=== PATIENT | female | born 1995 | race Caucasian/White ===

== ENCOUNTER 2018-04-17 16:32 | Emergency (ER) | payer MEDICAID, SELFPAY ==
[2018-04-17 16:33] VITALS: BP 127/79; PULSE 73; RESP 14; TEMP 37.4; O2SAT 98; BMI 39.4
--- NOTE | 2018-04-17 16:43 | ED.VISSUMM ---
- ER Visit Summary Date of Service: 04/17/18 Chief Complaint: Concern for History of Present Illness: The patient is a 22 F presents to the emergency department concerned she is . 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 She had to be on Xarelto after pulmonary embolus. Patient is on been once before and had a miscarriage. She is concerned that if she is , she will need to be on anticoagulants. She did have 2 positive urine tests at home. She denies any abdominal pain. She denies any vaginal bleeding. She has had no chest pain. She has had mild nausea. Physical Examination: Vital signs reviewed General: Well-nourished, well-developed Head: Normocephalic, atraumatic Eyes: Pupils equal and reactive, extraocular muscles intact Neck, supple, no lymphadenopathy Heart: Regular rate and rhythm Respiratory: No distress, clear bilaterally Abdomen: Soft, nontender, nondistended, no peritoneal signs Back: Nontender Extremities: Nontender, no edema, no cords Skin: Normal color no rash Neuro: Alert and oriented, no focal or lateralizing deficits Test Results: [] Emergency Department Course and Treatment: The patient has no abdominal pain. She has had no chest pain or shortness of breath. She was just recently here for a confirmatory test and outpatient follow-up as she has had a clotting disorder. Quant was obtained and was positive at 170. The patient is obviously not far enough along for ultrasound at this time. She has had no pain. I do not suspect ectopic. The patient was counseled on results. I did activities counselor her that if her symptoms change, she has pain, she has any bleeding she should return immediately. I discussed the patient with Dr. Dinh for outpatient follow-up. She does state that until there is a confirmed viable , anticoagulants are held. The patient be seen in the office this week. She will be started on vitamins. Treatment Plan: [] Disposition: Discharge Impression: 1. 2. History of clotting disorder This note was generated with [employer] software. It may contain incorrect words, spelling, and punctuation that were not noted in review of the chart prior to signing ED Disposition - Plan for ED Patient: Chief Complaint: Instructions: ED Care Prescriptions: Vits [Prenatabs FA] 1 tab PO DAILY #90 tab Referrals: Samy Dinh [STAFF PHYSICIAN] -
[2018-04-17 17:09] LABS: Bacteria 0 SEEN /hpf (None Seen); Mucous, Urine 0 SEEN /hpf (<or=2+); Red Blood Cells-Urine 0 SEEN /hpf (0-5)
[2018-04-17 17:15] LABS: Color, Urine Yellow (Yellow); Glucose, Dipstick Normal (Normal); Ketone-Dipstick Negative (Negative); Leukocyte Esterase-Dipstick 25 /ul (Negative); Nitrite-Dipstick Negative (Negative); Occult Blood-Urine Negative /ul (Negative); Protein-Dipstick 15 mg/dl (Negative); Urine Bilirubin Dipstick Negative (Negative); Urine Clarity Clear (Clear); Urine Urobilinogen Normal (Normal)
[2018-04-17 17:26] LABS: Squamous Epithelial Cells - UA 0-5 SEEN /hpf (5-10); White Blood Cells 0-5 SEEN /hpf (0-5)
[2018-04-17 17:31] LABS: hCG Titer Quant., Serum 187 mIU/mL (<9 non-preg)
== END 2018-04-17 18:02 | disposition home or self-care (01) ==
PROVIDERS: Emergency Provider Emergency Medicine; Family Provider Family Medicine; PCP Family Medicine
DX: O99.111 Other diseases of the blood and blood-forming organs and certain disorders involving the immune mechanism complicating pregnancy, first trimester (principal); D68.2 Hereditary deficiency of other clotting factors; Z3A.00 Weeks of gestation of pregnancy not specified; Z79.82 Long term (current) use of aspirin
CPT/HCPCS: 81001; 84702; 99283; A4216

== ENCOUNTER 2018-05-29 23:37 | Emergency (ER) | payer MEDICAID, SELFPAY ==
[2018-05-29 23:38] VITALS: BP 139/86; PULSE 100; RESP 16; TEMP 37.3; O2SAT 100; BMI 40.5
[2018-05-30] MEDS: 0.9% Normal Saline 1,000 ML 1000 ML IV (00:11)
[2018-05-30] MEDS: Acetaminophen 500 MG Tablet 1000 MG PO (00:13)
[2018-05-30] MEDS: Ondansetron 4 MG/2 ML Vial IV (00:13)
[2018-05-30 00:17] LABS: Absolute Lymphocyte Count 2.33 X10^3/ul (0.83-4.51); Absolute Neutrophil Count 5.9 X10^3/uL (2.0-7.7); Basophil# 0.01 X10^3/uL; Basophil% 0.1 % (0-1); Eosinophil# 0.11 X10^3/uL; Eosinophils% 1.2 % (0-5); Hematocrit 36.6 % (37-47); Hemoglobin 12.2 g/dl (12.0-15.0); Lymphocyte # 2.33 X10^3/ul (4.0); Lymphocyte % 25.3 % (19-41); Mean Corp Hgb Conc 33.3 g/gl (32-36); Mean Corpuscular Hgb 29.7 pg (27.0-32.0); Mean Corpuscular Volume 89.1 fL (81-99); Mean Platelet Vol. 10.7 fl (6.2-12.0); Monocyte# 0.83 X10^3/uL; Neutrophil # 5.91 X10^3/uL (2.7-7.7); Neutrophil % 64.3 % (47-70); Platelet Count 258 K/mm3 (150-450); RBC Distribution Width CV 14.5 % (11.6-14.6); RBC Distribution Width SD 46.7 fl (35.1-43.9); Red Blood Count 4.11 M/mm3 (4.2-5.4); White Blood Count 9.2 K/mm3 (4.4-11.0)
[2018-05-30 00:18] LABS: POSITIVE COUNT NO; POSITIVE DIFFERENTIAL NO; POSITIVE MORPHOLOGY NO
--- NOTE | 2018-05-30 00:53 | ED.DCSUM_ITS ---
- ER Visit Summary Date of Service: 05/30/18 Chief Complaint: Abdominal pain History of Present Illness: The patient is a 22 F who [facility] and Dr. Anderson. She is a at 10 weeks by an ultrasound May 06. She reports that she has upper abdominal pain began 5:00 this evening is gradually gotten worse. Is a sharp pains 1010 at worst and 6 out of 10 currently. Is worsened by nothing including food. It is also relieved by nothing. She has been nausea and vomited 3 times. No blood or emesis. She reports that she has chronic diarrhea, but has not had anything today. Her last problem was 2 days ago. She has had no melena hematochezia. No dysuria frequency. No vaginal bleeding or discharge. No fever or chills. Physical Examination: Vitals: Stable. Afebrile. General: Well-nourished and well-developed. Head: Normocephalic atraumatic. Neck: Supple, no lymphadenopathy. No JVD. Nontender. Cardiovascular: Regular rate and rhythm. No murmurs. Respiratory: No respiratory distress. Clear to auscultation bilaterally. Abdominal: Soft, mild tenderness palpation the right upper quadrant/epigastric/ left upper quadrant, nondistended, normal bowel sounds. No guarding, rebound, or peritoneal signs. Back: Nontender. Extremities: Nontender, no edema. Skin: Normal color, no rash. Neurologic: Alert and oriented ?3. Cranial nerves II through XII are intact. Normal strength and sensation. Psych: Normal affect. Test Results: Bedside ultrasound shows good movement and heartbeat. CBC is more for hematocrit 36.6. Chem-7 is normal. LFTs are normal. Lipase is normal. UA is contaminated with greater than 100 epithelial cells. There is 1025 white blood cells, but no bacteria. Emergency Department Course and Treatment: Patient had an IV placed. She was given a liter bolus normal saline. She is given Tylenol p.o. and Zofran IV. She is resting comfortably. Treatment Plan: Patient will be discharged with Zofran for nausea. Instructed to follow with her primary care physician 1-2 days if not improving. Return to the emergency department for any worsening symptoms. Disposition: To home in improved and stable condition. Impression: 1. Abdominal pain, uncertain cause. 2. First trimester . This note was generated with [employer] dictation software. It may contain incorrect words, spelling, and punctuation that were not noted in review of the chart prior to signing ED Disposition - Plan for ED Patient: Chief Complaint: Instructions: ED Abdominal Pain Unkn Cause Prescriptions: Ondansetron [Zofran Odt] 4 mg PO Q8H PRN PRN #10 tablet PRN Reason: Nausea Referrals: Td Anderson MD [Primary Care Provider] - 1-2 Days if not improving
[2018-05-30 00:55] LABS: AST(SGOT) 37 U/L (15-37); Alanine Aminotransfer ALT/SGPT 22 U/L (13-56); Albumin, Serum 3.3 g/dL (3.2-5.0); Alkaline Phosphatase 46 U/L (45-117); Anion Gap 8 (5-15); BUN 8 mg/dL (7-18); BUN/Creat Ratio 12.5 RATIO (10-20); Bilirubin, Direct 0.08 mg/dL (0.00-0.30); Calcium,Total 8.6 mg/dL (8.5-10.1); Chloride 107 mmol/L (98-107); Creatinine, Serum 0.64 mg/dL (0.55-1.02); EST Glomerular Filtration Rate 125 mL/min (>60); Est Glom Filt Rate - Afr Amer 151 mL/min (>60); Estimated Creatinine Clearance 121.08 ml/min; Glucose 94 mg/dL (74-106); Lipase 97 U/L (73-393); Potassium 4.5 mmol/L (3.5-5.1); Protein, Total 7.3 g/dL (6.4-8.2); Sodium Level 138 mmol/L (136-145)
[2018-05-30 01:00] LABS: Bacteria 0 SEEN /hpf (None Seen)
[2018-05-30 01:04] LABS: Color, Urine Yellow (Yellow); Glucose, Dipstick Normal (Normal); Leukocyte Esterase-Dipstick 500 /ul (Negative); Nitrite-Dipstick Negative (Negative); Occult Blood-Urine 10 /ul (Negative); Protein-Dipstick 15 mg/dl (Negative); Specific Gravity, Urine 1.025 (1.002-1.030); Urine Bilirubin Dipstick Negative (Negative); Urine Clarity Sl. Cloudy (Clear); Urine Urobilinogen Normal (Normal)
[2018-05-30 01:17] LABS: Ketone-Dipstick 150 mg/dl (Negative)
[2018-05-30 01:18] LABS: Mucous, Urine 2+ /hpf (<or=2+); Red Blood Cells-Urine 0-5 SEEN /hpf (0-5); Squamous Epithelial Cells - UA > 100 SEEN /hpf (5-10); White Blood Cells 10-25 SEEN /hpf (0-5)
[2018-05-30 01:23] VITALS: BP 126/80; PULSE 78; RESP 16; O2SAT 98
== END 2018-05-30 01:29 | disposition home or self-care (01) ==
LOC: ED 05-30 00:02
PROVIDERS: Emergency Provider Emergency Medicine; Family Provider Family Medicine; PCP Family Medicine
DX: R10.9 Unspecified abdominal pain (principal); O26.891 Other specified pregnancy related conditions, first trimester; Z3A.10 10 weeks gestation of pregnancy; R19.7 Diarrhea, unspecified
CPT/HCPCS: 80048; 80076; 81001; 83690; 85025; 99284; J7030; J2405

== ENCOUNTER 2018-10-03 04:05 | Outpatient (CLI) | payer MEDICAID, SELFPAY ==
[2018-10-03 05:25] VITALS: BMI 43.0
--- NOTE | 2018-10-06 13:52 | OB.TRI.NOTE ---
History of Present Illness Reason For Visit: R/O LABOR Date of Service: 10/03/18 Final INES: 12/23/18 Gestational age: 28 Weeks and 6 Days Allergies amoxicillin Allergy (Verified 05/29/18 23:38) Unknown NST - FHR Rate Baby A Baseline: 135 Variability:: Moderate Accelerations:: 15 x 15 Decelerations:: Variable NST Reactive:: Yes Uterine Activity:: quiet Impression/Plan Reactive NST for threatened PTL
== END 2018-10-03 05:50 | disposition home or self-care (01) ==
LOC: WPOUT 04:43 → WP 04:44
PROVIDERS: Family Provider Family Medicine; PCP Family Medicine; Referring Provider Obstetrics & Gynecology; Visit Provider Obstetrics & Gynecology
DX: O60.02 Preterm labor without delivery, second trimester (principal); Z3A.28 28 weeks gestation of pregnancy
CPT/HCPCS: 59050; 99218; G0378

== ENCOUNTER 2018-12-16 09:05 | Inpatient (IN) | payer MEDICAID, SELFPAY ==
[2018-12-16 09:16] VITALS: BMI 45.6
[2018-12-16] MEDS: Lactated Ringers 1,000 ML 50 ML IV ×3 (10:00→17:45)
[2018-12-16 10:31] LABS: Hemoglobin 11.1 g/dl (12.0-15.0); Mean Corp Hgb Conc 31.7 g/gl (32-36); Mean Corpuscular Hgb 28.2 pg (27.0-32.0); Mean Corpuscular Volume 88.8 fL (81-99); Platelet Count 247 K/mm3 (150-450); RBC Distribution Width CV 14.5 % (11.6-14.6); RBC Distribution Width SD 47.1 fl (35.1-43.9); Red Blood Count 3.94 M/mm3 (4.2-5.4)
[2018-12-16 10:32] LABS: Scan Indicated on CBC? Y/N NO
[2018-12-16 10:41] LABS: International Normalized Ratio 0.9; Prothrombin Time (Protime)PT. 12.6 SECONDS (11.7-14.9)
[2018-12-16 10:42] LABS: Partial Thromboplast Time 27.3 Seconds (24.1-36.2)
[2018-12-16 10:45] LABS: AST(SGOT) 13 U/L (15-37); Alanine Aminotransfer ALT/SGPT 14 U/L (13-56); Creatinine, Serum 0.53 mg/dL (0.55-1.02); EST Glomerular Filtration Rate 154 mL/min (>60); Est Glom Filt Rate - Afr Amer 186 mL/min (>60)
[2018-12-16 11:44] LABS: Protein, Urine (Random) < 6.0 mg/dL (<11.9)
--- NOTE | 2018-12-16 12:54 | HP.PCM_ITS ---
- Problem List (1) Gestational hypertension Status: Acute (2) History of pulmonary embolism Status: Acute (3) Obesity affecting Status: Acute (4) History of depression Status: Acute (5) Positive GBS test Status: Acute (6) Bipolar 2 disorder Status: Acute History Date of Admission: 12/16/18 Final INES: 12/23/18 Final INES Source: US <20 weeks Gestational age: 39 Weeks and 0 Days History of this : This is a 23 year-old, G [2], P [0010], at 39 weeks gestational age. Presented to office today with elevated BP. Sent to L&D for IOL for Gestational HTN and history of pulmonary embolism. Allergies amoxicillin Allergy (Verified 12/16/18 09:43) Rash Home Medications: Home Medications Heparin Sodium,Porcine [Heparin Sodium] 5,000 unit IJ 12/16/18 Vits [Prenatabs FA] 1 tablet PO DAILY 12/16/18 Smoking Status: Never smoker Alcohol: None Number of Fetus(es): 1 Heart Tracin, moderate variability, accels, no decels, Category 1 Uterine irritability History Past Pregnancies: Past Pregnancies Delivery Date Name GA/Weeks Outcome Route Weight Gender Labor Length Anesthesia Delivery Location Provider FOB Labs: GC/CT positive beginning of , KAVITA negative on 11/29/18 GBS positive Urine tox screen negative RPR negative Rubella Immune HBsAG negative HIV negative A positive Cystic Fibrosis negative Expected Infant Delivery Method: Spontaneous Vaginal Review of Systems Constitutional: Denies: Chills, Fever, Weight Change Eyes: Denies: Blurred vision HEENT: Denies: Head Aches, Sinus Congestion, Sinus Drainage Cardiovascular: Denies: Chest Pain, Palpitations Respiratory: Denies: Cough, Shortness of breath at rest, Sputum production Gastrointestinal: Denies: Abdominal Pain, Nausea, Vomiting Genitourinary: Denies: Dysuria Skin: Denies: Rash, Wounds Neurological: Denies: Numbness, Tingling, Focal weakness Psychiatric: Denies: Anxiety, Depression, Homicidal Ideations, Suicidal Ideations Hematologic/ Lymphatic: Denies: Easy Bruising, Easy Bleeding Physical Exam General: Alert, Oriented x3, No apparent distress HEENT: Atraumatic, Normocephalic Cardiovascular: Regular rate, Regular Rhythm, No murmurs Lungs: Clear to auscultation, Normal air movement, No rhonchi, No wheeze Abdomen: Bowel Sounds Present, Soft, Non Tender, Gravid Extremities:: Other - +1 non pitting BLE edema Neurological: Deep Tendon Reflexes 2+/4 and Symmetrical. Negative for: Clonus FORMING PRESS OPERATOR: Normal external genitalia. Negative for: Vulvar lesions Estimated gestational size: Appropriate for gestational size Presentation: Cephalic Cervix Dilation (cm): 1 Station: -1 Effacement (%): 70 Assessment/Plan All Active Problems Gestational hypertension (Acute) History of pulmonary embolism (Acute) Obesity affecting (Acute) History of depression (Acute) Positive GBS test (Acute) Bipolar 2 disorder (Acute) This is a 23 year-old, G [2], P [0010], at 39 weeks gestational age. A: Medically indicated induction of labor for Gestational Hypertension P: 1) Admit to L&D, routine orders 2) Reviewed plan, would like unmedicated if possible. Reviewed with patient if BP is elevated in severe range would recommend epidural. 3) Labs normal at this time. No signs of Pre-e, gestational HTN 4) Continuous monitoring. 5) Castaneda catheter and PO cytotec for cervical ripening. 6) Will start Pitocin after cervical ripening. 7) [facility] physician.
[2018-12-16] MEDS: 0.9% Normal Saline 100 ML IV.SOLN. INTRA-UTER (13:30)
[2018-12-16] MEDS: miSOPROStol 25 MCG TABLET PO (13:45)
[2018-12-16] MEDS: Acetaminophen 325 MG Tablet PO ×2 (16:12→20:48)
[2018-12-16] MEDS: Cefazolin 2 GM in 0.9% Normal Saline 100 ML IV (18:02)
[2018-12-16] MEDS: Oxytocin 30 units/NS 500 ml 30 UNITS/500 ML IV.SOLN IV (19:10)
[2018-12-17] VITALS (12 sets, daily range): BP systolic 114–132; BP diastolic 52–80; PULSE 110–135; RESP 16–18; TEMP 36.6–37.4; O2SAT 94–100
[2018-12-17] MEDS: Lactated Ringers 1,000 ML 50 ML IV ×3 (01:12→10:54)
[2018-12-17] MEDS: Cefazolin 1 GM/50 ML BAG IV ×2 (01:59→10:55)
--- NOTE | 2018-12-17 05:23 | PCM.PN.OB ---
Patient Problems: Active and Suspected Problems Gestational hypertension (Acute) History of pulmonary embolism (Acute) Obesity affecting (Acute) History of depression (Acute) Positive GBS test (Acute) Bipolar 2 disorder (Acute) Subjective: Coping well, laying well in bed. Family at bedside. Objective: FHT 120, moderate variability, accels, no decels, Category 1 TOCO: every 2-4 minutes, Pitocin at 16mu's. Cervix 5cm/70%/-1. AROM for small amount of clear fluid - Physical Exam Weight: 266 lb 1.567 oz Body Mass Index (BMI) 45.6 Laboratory Tests Past 24 Hrs 12/16/18 12/16/18 12/16/18 10:00 10:00 10:00 WBC 9.0 RBC 3.94 L Hgb 11.1 L Hct 35.0 L MCV 88.8 MCH 28.2 MCHC 31.7 L RDW 14.5 RDW Differential 47.1 H Plt Count 247 MPV 11.0 PT 12.6 INR 0.9 APTT 27.3 Creatinine Est GFR (MDRD) Af Amer Est GFR (MDRD) Non-Af Uric Acid AST ALT U Random Total Protein Urine Creatinine Protein/Creatinin Ratio Blood Type A POSITIVE Antibody Screen NEGATIVE 12/16/18 12/16/18 10:00 11:15 WBC RBC Hgb Hct MCV MCH MCHC RDW RDW Differential Plt Count MPV PT INR APTT Creatinine 0.53 L Est GFR (MDRD) Af Amer 186 Est GFR (MDRD) Non-Af 154 Uric Acid 4.0 AST 13 L ALT 14 U Random Total Protein < 6.0 Urine Creatinine 19.80 Protein/Creatinin Ratio TNP Blood Type Antibody Screen Medical Necessity - Tobacco Use Smoking Status: Never smoker Assessment/Plan All Active Problems Gestational hypertension (Acute) History of pulmonary embolism (Acute) Obesity affecting (Acute) History of depression (Acute) Positive GBS test (Acute) Bipolar 2 disorder (Acute) A:Active labor, progressing Category 1 FHT P: 1) Continue with active management 2) Positional changes. Epidural for pain management when desires
[2018-12-17] MEDS: Nalbuphine 10 MG/ML Ampul IV (08:45)
[2018-12-17] MEDS: fentaNYL-bupivacaine (epidural) 100 ML BAG EPIDURAL ×2 (10:15→15:18)
[2018-12-17] MEDS: Acetaminophen 325 MG Tablet PO (15:19)
[2018-12-17] MEDS: Ondansetron 4 MG/2 ML Vial IV ×2 (15:20→23:18)
[2018-12-17] MEDS: Sodium Citrate/Citric Acid 30 ML UDC PO (17:37)
[2018-12-17] MEDS: Cefazolin 2 GM in 0.9% Normal Saline 100 ML IV (17:55)
[2018-12-17] MEDS: Oxytocin 30 units/NS 500 ml 30 UNITS/500 ML IV.SOLN 167 UNITS IV (18:12)
[2018-12-17] MEDS: Ketorolac 30 MG/ML Syringe IV (18:20)
--- NOTE | 2018-12-17 19:13 | OP.PCM_ITS ---
Report of Operation Date of Procedure: 12/17/18 Pre-Operative Diagnosis: (1) Gestational hypertension (2) Failure to dilate Post-Operative Diagnosis: Same Surgery/Procedure Performed:: Low transverse section Description of Surgical Findings:: Normal uterus & adnexa protective services officer: Jose Hernandez Type of Anesthesia:: Epidural Drains: Castaneda Fluids Replaced: 1500ml Delivery Classification: KAMLESH Final INES: 12/23/18 Gestational age: 39 Weeks and 1 Days Indications: Patient was induced for gestational hypertension. She made slow change to 6cm and didn't further dilate beyond that despite adequate contractions for over 5 hours. Indications for : Sec. Arrest of Dilitation Description of Procedure: Patient taken to OR where epidural anesthesia was dosed. She was prepped and draped in normal sterile fashion in a dorsal lithotomy position with a leftward tilt. After ensuring adequacy of anesthesia the Pfannensteil skin incision was made and carried through to the underlying fascia with a bovie. The fascia was incised in the midline and carried laterally with the Negron scissors. The rectus muscles were in the midline and the peritoneum was entered bluntly. The bladder flap was dissected down carefully with the Metzenbaum scissors and blunt dissection. Bladder blade inserted. The uterus was incised in a transverse fashion and then incision extended with cephalocaudad traction. The fetus was vertex and the head was brought to the incision in the flexed position. With good fundal pressure the head easily delivered. Gentle traction placed on head to allow delivery of anterior & posterior shoulders. No excess traction placed on head. The body delivered easily. The 3VC cord was clamped and cut after 1 minute delay and the infant handed off to the waiting RN. The placenta was delivered w/ gentle traction and fundal massage and the uterus was exteriorized and cleared of all clots and debris. The uterine incision was closed with 1 vicryl suture in a running locked fashion. The bovie was used to further obtain hemostasis of the uterine incision. A second imbricating layer of monocryl was placed. 2 additional figure of 8 sutures were placed to further obtain hemostasis of the uterine incision. The uterus was returned to the peritoneal cavity. The pelvis was irrigated & then cleared of all clots and debris. The uterine incision was reexamined and found to be hemostatic. Some linette was placed over the uterine incision due to the denuded areas. The parietal peritoneum was reapproximated with running 3-0 vicryl suture. The fascia was closed with looped PDS suture in a running standard fashion. The subcutaneous tissue was examined & any bleeding bovie cauterized. The subcutaneous tissue was reapproximated with 3-0 vicryl suture. The skin was closed in a subcuticular fashion by the SLAT BASKET MAKER HELPER with me present in the labor and delivery suite. I performed the remainder of the procedure w/ assistance. Amniotic Membrane Rupture Type: Artificial Amniotic Fluid Description: Clear Placenta Disposition: [facility] Specimen(s) sent to pathology: None Drain: Castaneda to straight drain Cord Entanglement: Around neck x 1, loose Cord Vessel Description: 3 Vessels Esitmated Blood Loss (ml): 900ml Infant Gender: Male (1 minute): 8 (5 minute): 9 Delayed cord clamping: Yes Pre-op Antibiotic Given: Ancef 2 grams IV x1 - also azithromycin 500mg IV x1 Complications: None - Admit VTE Documentation VTE Present on Admission: No VTE Mechan Device Prophylaxis: SCD's VTE Pharm Prophylaxis ordered?: Yes
--- NOTE | 2018-12-17 20:00 | NURSING ---
When FOB left room pt told this RN that she is wanting to talk to a coffee plantation worker before she is discharged home. pt reports living with her boyfriend Ovidio and his parents. pt reports they are currently living in a trailer which has multiple leaks in the roof, holes in the floor, animal feces on the carpet from their dog, and pt states she suspects black mold. pt also states Ovidio's parents smoke in the trailer and she does not want to take her baby home to those conditions and is hoping to get assistance with housing. pts mother has been very supportive during recovery. pt states she is unable to go and live with her mother because there is no room, pt states she is currently not working, however Ovidio is working but has little money because he gives it to his mother
[2018-12-17] MEDS: Lactated Ringers 1,000 ML 100 ML IV (20:32)
--- NOTE | 2018-12-17 21:50 | NURSING ---
epidural cath d/c'd with blue tip intact
[2018-12-17] MEDS: hydrOXYzine PAM 25 MG Capsule 50 MG PO (21:54)
[2018-12-17] MEDS: 0.9% Saline Lock 10 ML Syringe IV (23:18)
[2018-12-17] MEDS: HYDROmorphone 1 MG/ML Syringe 0.5 MG IV (23:23)
[2018-12-18] VITALS (22 sets, daily range): BP systolic 118–164; BP diastolic 65–92; PULSE 105–138; RESP 16–20; TEMP 36.6–39.1; O2SAT 95–100
[2018-12-18] MEDS: Ketorolac 30 MG/ML Syringe IV ×4 (00:06→18:24)
--- NOTE | 2018-12-18 00:51 | NURSING ---
baby was crying and showing hunger ques, RN assisted to get baby skin to skin. as baby crying pt became increasingly anxious. emotional support provided. RN assisted pt with latching baby onto breast. as baby nursing pt became tearful and asked why is he stopping? RN told pt it is normal for baby to take pauses when he is . RN encouraged FOB to assist pt with stimulating baby by rubbing his back if he appears to be getting sleepy while on breast. fob and pt both verbalize understanding. will continue to monitor
[2018-12-18] MEDS: Enoxaparin 40 MG/0.4 ML Syringe SC ×2 (00:59→13:48)
--- NOTE | 2018-12-18 01:17 | NURSING ---
FOB called out asking for RN to come into room because she is having a panic attack. As RN entered room pts HR noted to be 150 per monitor, pulse ox 98%. pt tearful and yelling at fob I cant do this, im not comfortable. FOB holding baby. Pt told this nurse that she is not able to feed the baby due to not being comfortable in bed. pt states im hot, im itchy, my back hurts, and i cannot feed him like this RN encouraged pt to take a few deep breaths and emotional support provided. Pt repositioned in bed, and cool wash cloth provided. Pt stated she wanted to try to feed baby in the football position because she was more comfortable. RN discussed positioning with fob, fob handed baby to mother and was starting to position baby to football hold under RN's direction. MOB stated he needs help hes not doing it right!. RN told pt that the FOB was doing a good job at positing baby. MOB then started to become increasingly anxious again and stated i dont know what to do, i dont remember how to hold him This RN then assisted pt with holding and latching her baby onto breast, baby latched well. pts HR 115, fob present and supportive. will continue to monitor
[2018-12-18] MEDS: Cefazolin 2 GM in 0.9% Normal Saline 100 ML IV ×3 (05:14→22:01)
[2018-12-18] MEDS: Acetaminophen 500 MG Tablet 1000 MG PO ×2 (05:14→13:11)
[2018-12-18] MEDS: Lactated Ringers 1,000 ML 100 ML IV (06:10)
[2018-12-18 06:32] LABS: Hematocrit 29.8 % (37-47); Hemoglobin 9.4 g/dl (12.0-15.0); Mean Corp Hgb Conc 31.5 g/gl (32-36); Mean Corpuscular Hgb 28.2 pg (27.0-32.0); Mean Corpuscular Volume 89.5 fL (81-99); Mean Platelet Vol. 10.9 fl (6.2-12.0); Platelet Count 184 K/mm3 (150-450); RBC Distribution Width CV 14.7 % (11.6-14.6); RBC Distribution Width SD 47.8 fl (35.1-43.9); Red Blood Count 3.33 M/mm3 (4.2-5.4); White Blood Count 11.2 K/mm3 (4.4-11.0)
--- NOTE | 2018-12-18 06:32 | NURSING ---
pt up in chair in room, RN assisting pt with . baby has a good latch. when baby unlatched and continued to show hunger ques, RN encouraged pt to attempt to relatch baby onto breast, pt then became anxious and tearful, pt stated i cant do it, i dont remember how you told me to do it RN then re-explained and demonstrated latching baby onto breast. pt vocalized concern that she feels as she is doing it all wrong. pt reassured and emotional support provided
[2018-12-18 06:34] LABS: Scan Indicated on CBC? Y/N NO
--- NOTE | 2018-12-18 06:43 | PCM.RX.CS ---
Consult Pharmacy has been consulted to manage selected antiobiotic: Gentamicin Type of Consult: New start Suspected Infection: Other Prior Doses of Antibiotics Received/Current Regimen: Medications Gentamicin Sulfate 270 mg/ (Dextrose) 56.75 mls @ 100 mls/hr IVPB Q24H DENIA to continue 12/19/18 0600 Discontinued Medications Gentamicin Sulfate 270 mg/ (Dextrose) 56.75 mls @ 100 mls/hr IVPB X1 ONE Stop: 12/18/18 06:04 Last Admin: 12/18/18 06:11 Dose: 100 mls/hr Labs: Creatinine 0.53 mg/dL (0.55-1.02) L 12/16/18 10:00 Est GFR (MDRD) Af Amer 186 mL/min (>60) 12/16/18 10:00 Est GFR (MDRD) Non-Af 154 mL/min (>60) 12/16/18 10:00 Weight used for dosin.7 kg Estimated Creatinine Clearance: 145 Goal Trough: Other Pharmacy Plan for Drug Dosing: Pharmacy Service will continue to monitor and adjust dosing as required. Follow-Up Labs: Trough Gentamicin - random level 16 hours after first dose Labs to be done on [date and time ordered]: 12/18/18 2200 random level 16 hours after first dose; goal <1.0
--- NOTE | 2018-12-18 08:51 | EKG12_ITS ---
Test Reason : TACHYCARDIA Blood Pressure : / mmHG Vent. Rate : 123 BPM Atrial Rate : 123 BPM P-R Int : 156 ms QRS Dur : 082 ms QT Int : 306 ms P-R-T Axes : 057 046 018 degrees QTc Int : 438 ms Sinus tachycardia Otherwise normal ECG When compared with ECG of 10-OCT-2017 23:22, No significant change was found Confirmed by ROBE GOMEZ, ALINA ([id number]), editor newspaper DORA FARR ([id number]) on 12/27/2018 12:58:41 PM Referred By: Samy Dinh Confirmed By:ALINA NAGEL MD
--- NOTE | 2018-12-18 10:05 | PCM.PN.OB ---
Patient Problems: Active and Suspected Problems Gestational hypertension (Acute) History of pulmonary embolism (Acute) Obesity affecting (Acute) History of depression (Acute) Positive GBS test (Acute) Bipolar 2 disorder (Acute) Subjective: Patient reports abdominal pain. Denies CP/SOB. She states it hurts in her belly to take a deep breath. - Physical Exam General: Alert, Oriented x3 Abdomen: Soft, Non-Distended - appropriately tender; ff mid & below umb Extremities: No edema, No Calf Tenderness Neurological: Cranial nerves II-XII grossly intact Vital Signs Temp Pulse Resp BP Pulse Ox 99.1 F 128 H 16 118/67 100 12/18/18 08:29 12/18/18 08:29 12/18/18 08:29 12/18/18 08:29 12/18/18 08:29 Oxygen Delivery Method Room Air Weight: 266 lb 1.567 oz Body Mass Index (BMI) 45.6 Intake and Output for Last 24 Hours 12/16/18 12/17/18 12/18/18 23:59 23:59 23:59 Intake Total 73624 / 95657 1404 / 1404 Output Total 4200 / 4200 250 / 250 Balance 6481 / 6481 1154 / 1154 Laboratory Tests Past 24 Hrs 12/18/18 05:25 WBC 11.2 H RBC 3.33 L Hgb 9.4 L Hct 29.8 L MCV 89.5 MCH 28.2 MCHC 31.5 L RDW 14.7 H RDW Differential 47.8 H Plt Count 184 MPV 10.9 Medical Necessity - Tobacco Use Smoking Status: Never smoker Assessment/Plan All Active Problems Gestational hypertension (Acute) History of pulmonary embolism (Acute) Obesity affecting (Acute) History of depression (Acute) Positive GBS test (Acute) Bipolar 2 disorder (Acute) POD#1 Heme - tachycardia likely d/t infection, anemia, pain & anxiety. Also patient has a known h/o sinus tachycardia in the past. EKG today shows sinus tachycardia. CBC reviewed. ID - possible endometritis. Patient on gentamycin & ancef. H/o PE - on intermediate dose lovenox - 40mg Q 12 hours. SCDs on now & plan for ambulation frequently. Social & mental health - plan for social work consult. Plan discussed with patient & nursing staff.
--- NOTE | 2018-12-18 11:02 | NURSING ---
RN assisted with . Mother considering supplementation. Discussed benefits of continued . Pt agreed to nurse, but only on right side due to left nipple soreness. baby nursed well in football hold with moderate assist from RN. Mother then holding baby skin to skin after feed. talking and gazing lovingly to baby. Mother held baby approx 15 min.
[2018-12-18] MEDS: 0.9% Saline Lock 10 ML Syringe IV ×4 (12:27→23:18)
--- NOTE | 2018-12-18 16:45 | NURSING ---
pt expressing frustration with . she states that it is increasing her anxiety and pain. pt educated on benefits of and options to help make her more comfortable. pt agrees to think through what was discussed and make a decision when the baby is ready to eat next
[2018-12-18] MEDS: oxyCODONE 5 MG Tablet PO ×2 (18:25→22:01)
[2018-12-18] MEDS: Senna/Docusate Sodium 1 Tablet PO (22:01)
[2018-12-18 23:47] LABS: Gentamicin, Random < 0.2 ug/mL
[2018-12-19] VITALS (7 sets, daily range): BP systolic 127–142; BP diastolic 59–83; PULSE 116–136; RESP 16–20; TEMP 36.9–37.7; O2SAT 95–99
[2018-12-19] MEDS: Ketorolac 30 MG/ML Syringe IV ×3 (00:36→11:29)
[2018-12-19] MEDS: 0.9% Saline Lock 10 ML Syringe IV ×6 (00:36→11:31)
[2018-12-19] MEDS: Enoxaparin 40 MG/0.4 ML Syringe SC ×2 (00:37→11:30)
--- NOTE | 2018-12-19 00:40 | PCM.RX.CS ---
Consult Pharmacy has been consulted to manage selected antiobiotic: Gentamicin Type of Consult: Follow-up Suspected Infection: Other Prior Doses of Antibiotics Received/Current Regimen: Medications Gentamicin Sulfate 270 mg/ (Dextrose) 56.75 mls @ 100 mls/hr IVPB Q24H DENIA Discontinued Medications Gentamicin Sulfate 270 mg/ (Dextrose) 56.75 mls @ 100 mls/hr IVPB X1 ONE Stop: 12/18/18 06:04 Last Admin: 12/18/18 06:11 Dose: 100 mls/hr Labs: Creatinine 0.53 mg/dL (0.55-1.02) L 12/16/18 10:00 Est GFR (MDRD) Af Amer 186 mL/min (>60) 12/16/18 10:00 Est GFR (MDRD) Non-Af 154 mL/min (>60) 12/16/18 10:00 Random Gentamicin < 0.2 ug/mL 12/18/18 22:25 Weight used for dosin.7 kg - IBW Estimated Creatinine Clearance: 145 Goal Trough: Other Pharmacy Plan for Drug Dosing: Pharmacy Service will continue to monitor and adjust dosing as required. Gentamicin random level returned at <0.2 which is within goal of <1.0 Gentamicin will be continued at every 24 hour dosing.
[2018-12-19] MEDS: oxyCODONE 5 MG Tablet PO ×5 (01:59→20:24)
[2018-12-19] MEDS: Cefazolin 2 GM in 0.9% Normal Saline 100 ML IV (05:38)
[2018-12-19 07:43] LABS: Hematocrit 25.1 % (37-47); Mean Corp Hgb Conc 31.9 g/gl (32-36); Mean Corpuscular Hgb 28.5 pg (27.0-32.0); Mean Corpuscular Volume 89.3 fL (81-99); Mean Platelet Vol. 10.6 fl (6.2-12.0); Platelet Count 162 K/mm3 (150-450); RBC Distribution Width CV 14.7 % (11.6-14.6); RBC Distribution Width SD 48.5 fl (35.1-43.9); Red Blood Count 2.81 M/mm3 (4.2-5.4); White Blood Count 12.2 K/mm3 (4.4-11.0)
[2018-12-19 07:44] LABS: Scan Indicated on CBC? Y/N NO
[2018-12-19 07:52] LABS: Albumin, Serum 1.7 g/dL (3.2-5.0); BUN 6 mg/dL (7-18); BUN/Creat Ratio 11.7 RATIO (10-20); Creatinine, Serum 0.51 mg/dL (0.55-1.02); EST Glomerular Filtration Rate 160 mL/min (>60); Est Glom Filt Rate - Afr Amer 194 mL/min (>60); Estimated Creatinine Clearance 150.68 ml/min; Glucose 113 mg/dL (74-106); Protein, Total 5.3 g/dL (6.4-8.2)
[2018-12-19 07:53] LABS: ALB/GLOB Ratio 0.5 RATIO (0.9-2.4); AST(SGOT) 11 U/L (15-37); Alanine Aminotransfer ALT/SGPT 10 U/L (13-56); Alkaline Phosphatase 95 U/L (45-117); Anion Gap 11 (5-15); Calcium,Total 8.1 mg/dL (8.5-10.1); Chloride 113 mmol/L (98-107); Globulin 3.6 g/dL (2.2-4.2); Potassium 3.6 mmol/L (3.5-5.1); Sodium Level 146 mmol/L (136-145)
--- NOTE | 2018-12-19 08:26 | PCM.PN.OB ---
Patient Problems: Active and Suspected Problems Gestational hypertension (Acute) History of pulmonary embolism (Acute) Obesity affecting (Acute) History of depression (Acute) Positive GBS test (Acute) Bipolar 2 disorder (Acute) Subjective: pt seen at bedside, doing well. pt reports pain improving- easier to get around. pt reports is walking around and denies CP, SOB, dizziness or palpitations. pt reports now that pain is improving it is easier to take a deep breath. Breast feeding going well. pt is concerned with living situation and would like to talk to social professionals. - Physical Exam General: Alert, Oriented x3 Abdomen: Soft, Non-Distended, - - dressing dry and intact. fundus firm Extremities: No Calf Tenderness Vital Signs Temp Pulse Resp BP Pulse Ox 98.5 F 124 H 16 127/69 H 98 12/19/18 03:14 12/19/18 03:14 12/19/18 03:14 12/19/18 00:50 12/19/18 03:14 Oxygen Delivery Method Room Air Weight: 120.7 kg Body Mass Index (BMI) 45.6 Intake and Output for Last 24 Hours 12/17/18 12/18/18 12/19/18 23:59 23:59 23:59 Intake Total 20793 / 61503 1639 / 1639 Output Total 4200 / 4200 3300 / 3300 Balance 6481 / 6481 -1661 / -1661 Laboratory Tests Past 24 Hrs 12/18/18 12/19/18 12/19/18 22:25 07:15 07:15 WBC 12.2 H RBC 2.81 L Hgb 8.0 L Hct 25.1 L MCV 89.3 MCH 28.5 MCHC 31.9 L RDW 14.7 H RDW Differential 48.5 H Plt Count 162 MPV 10.6 Sodium 146 H Potassium 3.6 Chloride 113 H Carbon Dioxide 22.0 Anion Gap 11 BUN 6 L Creatinine 0.51 L Estim Creat Clear Calc 150.68 Est GFR (MDRD) Af Amer 194 Est GFR (MDRD) Non-Af 160 BUN/Creatinine Ratio 11.7 Glucose 113 H Calcium 8.1 L Total Bilirubin 0.20 AST 11 L ALT 10 L Alkaline Phosphatase 95 Total Protein 5.3 L Albumin 1.7 L Globulin 3.6 Albumin/Globulin Ratio 0.5 L TSH 4.70 H Random Gentamicin < 0.2 Medical Necessity - Tobacco Use Smoking Status: Never smoker Assessment/Plan All Active Problems Gestational hypertension (Acute) History of pulmonary embolism (Acute) Obesity affecting (Acute) History of depression (Acute) Positive GBS test (Acute) Bipolar 2 disorder (Acute) 23yo POD#2, doing well- acute on chronic anemia 1) SW consult today 2) T3T4 ordered as TSH elevated 3) asymptomatic tachycardia- will monitor- hg 8 today but remains asymptomatic other than tachycardia 4) Pain mgmt 5) encourage ambulation 6) continue lovenox
--- NOTE | 2018-12-19 08:30 | PN.OBGYN_ITS ---
Patient Problems: Active and Suspected Problems Gestational hypertension (Acute) History of pulmonary embolism (Acute) Obesity affecting (Acute) History of depression (Acute) Positive GBS test (Acute) Bipolar 2 disorder (Acute) Subjective: pt seen at bedside, doing well. pt reports pain improving- easier to get around. pt reports is walking around and denies CP, SOB, dizziness or palpitations. pt reports now that pain is improving it is easier to take a deep breath. Breast feeding going well. pt is concerned with living situation and would like to talk to social service worker. - Physical Exam General: Alert, Oriented x3 Abdomen: Soft, Non-Distended, - - dressing dry and intact. fundus firm Extremities: No Calf Tenderness Vital Signs Temp Pulse Resp BP Pulse Ox 98.5 F 124 H 16 127/69 H 98 12/19/18 03:14 12/19/18 03:14 12/19/18 03:14 12/19/18 00:50 12/19/18 03:14 Oxygen Delivery Method Room Air Weight: 120.7 kg Body Mass Index (BMI) 45.6 Intake and Output for Last 24 Hours 12/17/18 12/18/18 12/19/18 23:59 23:59 23:59 Intake Total 36354 / 29812 1639 / 1639 Output Total 4200 / 4200 3300 / 3300 Balance 6481 / 6481 -1661 / -1661 Laboratory Tests Past 24 Hrs 12/18/18 12/19/18 12/19/18 22:25 07:15 07:15 WBC 12.2 H RBC 2.81 L Hgb 8.0 L Hct 25.1 L MCV 89.3 MCH 28.5 MCHC 31.9 L RDW 14.7 H RDW Differential 48.5 H Plt Count 162 MPV 10.6 Sodium 146 H Potassium 3.6 Chloride 113 H Carbon Dioxide 22.0 Anion Gap 11 BUN 6 L Creatinine 0.51 L Estim Creat Clear Calc 150.68 Est GFR (MDRD) Af Amer 194 Est GFR (MDRD) Non-Af 160 BUN/Creatinine Ratio 11.7 Glucose 113 H Calcium 8.1 L Total Bilirubin 0.20 AST 11 L ALT 10 L Alkaline Phosphatase 95 Total Protein 5.3 L Albumin 1.7 L Globulin 3.6 Albumin/Globulin Ratio 0.5 L TSH 4.70 H Random Gentamicin < 0.2 Medical Necessity - Tobacco Use Smoking Status: Never smoker Assessment/Plan All Active Problems Gestational hypertension (Acute) History of pulmonary embolism (Acute) Obesity affecting (Acute) History of depression (Acute) Positive GBS test (Acute) Bipolar 2 disorder (Acute) 23yo POD#2, doing well- acute on chronic anemia 1) SW consult today 2) T3T4 ordered as TSH elevated 3) asymptomatic tachycardia- will monitor- hg 8 today but remains asymptomatic other than tachycardia 4) Pain mgmt 5) encourage ambulation 6) continue lovenox
[2018-12-19] MEDS: Senna/Docusate Sodium 1 Tablet PO (11:29)
[2018-12-19] MEDS: Ferrous Sulfate 325 MG Tablet PO ×2 (11:29→16:54)
[2018-12-19 13:30] LABS: Free T3 3.2 pg/mL (2.18-3.98); T4 Free Direct 1.27 ng/dL (0.76-1.46)
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
--- NOTE | 2018-12-19 15:30 | CASEMGMT ---
Addendum entered and electronically signed by Maya La 12/20/18 16:25: Reviewed and approve SENIOR SALES OPERATIONS MANAGER student documentation below. -Maya La, JODIE, JACKHAMMER OPERATOR Original Note: Social Work Labor and Delivery [facility] at [phone] and intake information regarding housing safety concerns, family risk factors, limited support system, untreated mother's mental health,and motivation/teaching concerns expressed by nurses provided to Pat. MOB was informed that social work would be following up with her on 12/20/18 with resources and to talk once again. PLAN: Social work to follow up with MOB and FOB on 12/20/18. Social work also to follow up with children services if needed. -Orly Guevara, SENIOR SALES OPERATIONS MANAGER Student Senior Research Scientist.
[2018-12-19] MEDS: Ibuprofen 600 MG Tablet PO (17:46)
[2018-12-19] MEDS: Acetaminophen 500 MG Tablet 1000 MG PO (23:11)
[2018-12-20] MEDS: oxyCODONE 5 MG Tablet PO ×5 (00:30→22:09)
[2018-12-20] MEDS: Enoxaparin 40 MG/0.4 ML Syringe SC ×2 (00:30→15:13)
[2018-12-20 02:07] VITALS: BP 131/68; PULSE 105; RESP 17; TEMP 36.8; O2SAT 98
--- NOTE | 2018-12-20 02:07 | NURSING ---
Pt. expresses frustration with . Told this RN Switching to formula would just be easier. This RN educated on the benefits of exclusive and provided support and encouragement. Pt. continues to nurse infant.
[2018-12-20] MEDS: Senna/Docusate Sodium 1 Tablet PO (04:10)
[2018-12-20] MEDS: Ibuprofen 600 MG Tablet PO ×2 (04:11→15:06)
--- NOTE | 2018-12-20 07:40 | PN.OBGYN_ITS ---
Patient Problems: Active and Suspected Problems Gestational hypertension (Acute) History of pulmonary embolism (Acute) Obesity affecting (Acute) History of depression (Acute) Positive GBS test (Acute) Bipolar 2 disorder (Acute) Subjective: Pain controlled. Mood is better. Denies depression. No CP/SOB. - Physical Exam General: Alert, Oriented x3 Abdomen: Bowel Sounds Present, Soft, Non Tender - ff mid & below umb Extremities: No Calf Tenderness, Edema - 1+ bilaterally Vital Signs Temp Pulse Resp BP Pulse Ox 98.3 F 105 H 17 131/68 H 98 12/20/18 02:07 12/20/18 02:07 12/20/18 02:07 12/20/18 02:07 12/20/18 02:07 Oxygen Delivery Method Room Air Weight: 266 lb 1.567 oz Body Mass Index (BMI) 45.6 Intake and Output for Last 24 Hours 12/18/18 12/19/18 12/20/18 23:59 23:59 23:59 Intake Total 1639 / 1639 Output Total 3300 / 3300 Balance -1661 / -1661 Laboratory Tests Past 24 Hrs 12/19/18 12/19/18 12/19/18 07:15 07:15 07:15 WBC 12.2 H RBC 2.81 L Hgb 8.0 L Hct 25.1 L MCV 89.3 MCH 28.5 MCHC 31.9 L RDW 14.7 H RDW Differential 48.5 H Plt Count 162 MPV 10.6 Sodium 146 H Potassium 3.6 Chloride 113 H Carbon Dioxide 22.0 Anion Gap 11 BUN 6 L Creatinine 0.51 L Estim Creat Clear Calc 150.68 Est GFR (MDRD) Af Amer 194 Est GFR (MDRD) Non-Af 160 BUN/Creatinine Ratio 11.7 Glucose 113 H Calcium 8.1 L Total Bilirubin 0.20 AST 11 L ALT 10 L Alkaline Phosphatase 95 Total Protein 5.3 L Albumin 1.7 L Globulin 3.6 Albumin/Globulin Ratio 0.5 L TSH 4.70 H Free T4 1.27 Free T3 pg/dL 3.2 Medical Necessity - Tobacco Use Smoking Status: Never smoker Assessment/Plan All Active Problems Gestational hypertension (Acute) History of pulmonary embolism (Acute) Obesity affecting (Acute) History of depression (Acute) Positive GBS test (Acute) Bipolar 2 disorder (Acute) POD#3 Heme - continue iron for anemia Tachycardia - overall improving Gestational htn - BP's reviewed H/o PE - continue lovenix bid. Will discuss vermin exterminator plan with [facility] heme. Social & mood - social work following. Patient will establish with counseling center for h/o depression & bipolar. Endo - likely subclinical hypothyroidism. Will discuss with medicine but likely plan for pcp f/u. Routine care
[2018-12-20 08:03] VITALS: BP 132/78; PULSE 108; RESP 16; TEMP 36.6; O2SAT 98
[2018-12-20 12:00] VITALS: BP 144/89; PULSE 130; RESP 16; TEMP 36.9; O2SAT 98
[2018-12-20] MEDS: Ferrous Sulfate 325 MG Tablet PO ×3 (12:11→16:51)
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
--- NOTE | 2018-12-20 15:15 | CASEMGMT ---
Social Work Labor and Delivery Unit Received call from Kyalene at [facility] [place], [place] ([facility]) ([phone], extension [phone]) reporting to be the assigned worker to this family. Updated Kaylene to MOB and baby?s status as well a reviewed initial referral. Kaylene plans to be at hospital tomorrow, 12.21.2018 to meet with family. Plan: Will continue to follow and assist. Will meet with MOB again on 12.21.18 to provide additional resources. Will continue collaboration with [facility]. -JODIE Mcdaniels, CITY EDITOR
--- NOTE | 2018-12-20 15:48 | NURSING ---
0800 while making rounds pt is noted to be in bed holding baby in the bed with her and has baby to breast. pt states she cant get the baby to latch. i pointed out to the pt she will need to support his head and showed her the hold i would recommend when . i then showed her how to hold her breast tissue and we went over her positioning and sitting comfortably herself prior to getting baby on the breast. baby did not continue to suck continuously. baby would get on and off and baby was very agitated. Mom was also very agitated. breast pump set up and actually placed on pt's breast, instructions given to use the pump on both sides for 10 minutes each side. 0830 Tiarra from has been updated and aware the pt would benefit from a visit from . 0855 Tiarra in and assisting with . 1120 Tiarra in and assisting with . 1200 I hear yelling and crying coming form the pt's room, I entered the room, baby is in the crib, not covered with a blanket or sleep sack he is frantically crying, the pt and her boyfriend are upset and pt is yelling at the boyfriend to leave. I asked what is wrong and the boyfriend states apparently everything i do is wrong, I cant help her to even sit down in a chair. boyfriend leaves the room. The pt stands in front of the chair and states i cant sit by myself, i told her to place her hands on the arms of the chair and lower herself into the chair. she states she cant, I asked her how do you propose i help you, I cannot you have to lower yourself in the chair. she continuous to cry, lowers herself in the chair. I hand the baby to her. we discussed she is responsible for taking care of her baby, she needs to be changing diapers, and the baby cannot be left to cry, he cannot be left uncovered and i demonstrated how to wrap the baby and how to use the safe sleep. We discussed and bottle feeds. Pt states she wants to do what is best for the baby, reassurance given. updated regarding feedings. in to see the pt. Pt enc to nurse the baby and to supplement with formula to do whatever is going to work best for her and the baby. Pt asked for a bottle, bottle provided. pt is sitting in chair crying talking to baby and now smiling. 1550 boyfriend to the pt called out and asked for more bottles. bottles taken to the room, boyfriend not in the room. Pt feed the baby 11mL of formula. pt states she is upset with boyfriend he slept most of last night and didnt help her. pt enc to use the resources she is given from nurses and or case management, and she needs to follow up not to leave it up to others in her household and then to be upset with those people when things dont get done to her liking. pt nods and says i know.
--- NOTE | 2018-12-20 15:54 | DCINST_ITS ---
Discharge Diet: No Restrictions Discharge Activity: May not drive while taking narcotic pain medications., May Shower May resume sexual activity in: 6 weeks Weight Bearing Status: Weight bearing as tolerated Call your doctor if your incision/area has: Continuous Slow Oozing, Sudden Increased Bleeding, Increased Pain/ Swelling, Foul Smelling Discharge, Swelling at the incision site Additional Instructions: If you experience any of the following, contact your healthcare provider. * Bleeding that soaks a pad every hour for 2 hours * Fever 100.4 or higher * Unrelieved incision or abdominal pain * Swelling, redness, discharge or bleeding from your incision or episiotomy site * Your incision begins to separate * Problems urinating (including inability to urinate or burning while urinating). * Visual changes * Severe headache * Flu-like symptoms * Pain or redness in one of both of your breasts * Pain, warmth, tenderness or swelling in your legs, especially the calf area * Frequent nausea and vomiting * Symptoms of depression or anxiety If you experience any of the following, call 911 or go to the nearest Emergency Room. * Chest pain * Problems breathing * Seizure activity * Partial or complete paralysis of a body part, slurred speech, weakness or drooping of the face, or a sudden inability to walk or hold your balance Allergies/Adverse Reactions: Allergies amoxicillin Allergy (Verified 12/16/18 09:43) Rash Medications to take at Discharge Vits [Prenatabs FA ] 1 tablet PO DAILY 12/16/18 Docusate Sodium [Colace] 100 mg PO BID PRN PRN #60 cap 12/20/18 Enoxaparin [Lovenox] 40 mg SUBCUT DAILY #30 syringe 12/20/18 Ferrous Sulfate 325 mg PO DAILY #30 tab 12/20/18 Ibuprofen [Motrin] 600 mg PO Q6H PRN PRN #40 tab 12/20/18 Oxycodone [Oxyir] 5 mg PO Q6H PRN PRN 7 Days #28 tab 12/20/18 The following prescriptions were given: Ibuprofen [Motrin] 600 mg PO Q6H PRN PRN #40 tab PRN Reason: Mild Pain (1-3/10) Oxycodone [Oxyir] 5 mg PO Q6H PRN PRN 7 Days #28 tab PRN Reason: Mod-Severe Pain (4-10/10) Docusate Sodium [Colace] 100 mg PO BID PRN PRN #60 cap PRN Reason: Constipation Enoxaparin [Lovenox] 40 mg SUBCUT DAILY #30 syringe Ferrous Sulfate 325 mg PO DAILY #30 tab Follow-Up: Call to make an appointment with your doctor for an incision check in 1-2 weeks. You will also need a 6 week post- follow up appointment. Test results from this visit will be discussed in further detail at your follow- up appointment, if applicable. Primary Care Physician: Td Anderson MD [Primary Care Provider] -
[2018-12-20 19:44] VITALS: BP 129/64; PULSE 117; RESP 18; TEMP 36.8; O2SAT 95
--- NOTE | 2018-12-20 22:09 | NURSING ---
pt tearful when this RN entered room to administer oxyir tablets pt had requested. she states that she is exhausted and her swollen legs are bothering her. this RN educated her on the swelling and how it has to do with the fluids given IV during her and post op and that it will go back to normal. cardiovascular changes should return to being WNL within 6 weeks and swelling should decrease long before that. this RN also instructed pt to elevate legs, as needed. no further needs at this time. pt is aware this RN will be rounding within an hour to assess pain and make sure there are no other interventions necessary.
[2018-12-21] MEDS: Enoxaparin 40 MG/0.4 ML Syringe SC ×2 (00:45→13:10)
[2018-12-21] MEDS: oxyCODONE 5 MG Tablet PO ×4 (02:33→17:20)
[2018-12-21 02:34] VITALS: BP 124/78; PULSE 115; RESP 16; TEMP 36.9
[2018-12-21] MEDS: Ibuprofen 600 MG Tablet PO (07:47)
[2018-12-21] MEDS: Ferrous Sulfate 325 MG Tablet PO ×3 (07:47→17:21)
[2018-12-21 08:00] VITALS: BP 131/84; PULSE 105; RESP 18; TEMP 36.8; O2SAT 98
--- NOTE | 2018-12-21 08:30 | PCM.PN.OB ---
Patient Problems: Active and Suspected Problems Gestational hypertension (Acute) History of pulmonary embolism (Acute) Obesity affecting (Acute) History of depression (Acute) Positive GBS test (Acute) Bipolar 2 disorder (Acute) Subjective: pain well controlled, average lochia. No CP/SOB/Palpitations. NO GUPTA or visual chages. + Flatus, no BM. alex. regular diet - Physical Exam General: Alert, Cooperative, No apparent distress Abdomen: Soft, Distended - moderately, softly, Tender - appropriately Extremities: Edema - 2+, - - 2+ DTRs, no clonus Skin: Incision - bandage clean, dry and intact Vital Signs Temp Pulse Resp BP Pulse Ox 98.5 F 115 H 16 124/78 H 95 12/21/18 02:34 12/21/18 02:34 12/21/18 02:34 12/21/18 02:34 12/20/18 19:44 Oxygen Delivery Method Room Air Weight: 120.7 kg Body Mass Index (BMI) 45.6 Medical Necessity - Tobacco Use Smoking Status: Never smoker Assessment/Plan All Active Problems Gestational hypertension (Acute) History of pulmonary embolism (Acute) Obesity affecting (Acute) History of depression (Acute) Positive GBS test (Acute) Bipolar 2 disorder (Acute) POD#4 acute blood loss anemia, tolerating well, fe h/o DVT- on anticoagulations, d/c home w/this gest HTN- Bp stable, f/u in 1 week or prn ambulate trial dulcolax to initiate bm
[2018-12-21] MEDS: Acetaminophen 500 MG Tablet 1000 MG PO (09:40)
[2018-12-21] MEDS: Hydrocortisone 2.5% Crm 1 APPLIC TOPICAL (13:24)
[2018-12-21 16:22] VITALS: BP 128/68; PULSE 74; RESP 16; TEMP 36.7; O2SAT 99
--- NOTE | 2018-12-21 17:02 | CASEMGMT ---
Social Work Labor and Delivery Unit Summary: Chart reviewed. Spoke with pattern grader and nursing staff today. Spoke with Kaylene from [facility] ([facility]). [facility] reports met with MOB about plans. MOB intends to take baby to older cousin?s home at discharge, provided addressed. [facility] wants to see that MOB has supplies in place for baby, asked that this be brought to the hospital. [facility] will also go and see the home MOB plans to take baby to. Met with mother of baby (MOB) in room, later joined by father of baby (FOB). FOB?s mother was present in room upon social work entering but left at medical social worker?s request. MOB reports to be upset today as reports perception that CS is going to take MOB?s baby and that MOB is made to be an unfit mother because of having to go do mental health treatment. Reviewed with MOB that [facility] job is to ensure safety of the children, not intention to split families up, that tries to help families stay together and this sometime means getting more supportive service involved. Discussed with MOB that getting mental health treatment does not mean MOB is unfit but a healthy choice to help support MOB during stressful times and gain skills to manage emotions. MOB voices that okay with going to counseling but does not want medications forced. Discussed with MOB that sometimes counseling is okay but at other times medications are needed. Explored with MOB at what point would MOB consider medication, attempting to point out that untreated mental health can impair ability to safely care for others. Attempted to correlate how MOB?s anxiety attacks in the hospital impaired MOB?s ability to recall teaching and how to care for baby. MOB reports now that not breast feeding is done the stress is resolved. Acknowledged that stress is likely reduced but that babies can still be stressful, and that if MOB has other stress which prompts such panic attacks what will MOB do. MOB had a hard time answering this other than would work through it. Explored with MOB that if such panic attacks happen at home would this be the point to consider medication. MOB reports if the panic and anxiety gets in the way of caring for baby would consider medication. Addressed with FOB the need to have some supplies brought to the hospital (clothes, diapers, wipes, and to get some formula). FOB agreed. MOB reports will not be an issue to get baby?s sleep space over to cousins house. MOB did voice worry that CS is going to rubber roller grinder operator the cousins? home. Educated MOB that CS is looking to see that the environment is safe in general. Address MOB intends to take baby temporarily is: [address] [place] [address]. Cousin is Brittney Schulz, . Returned to MOB?s room again and now MOB?s mother present in room. FOB entered room soon after social workers arrival. Baby now having to be under bili lights. MOB reports to be coping with this change in baby that just wants baby to be okay. MOB accepted information on [employer] housing application process, Medicaid application for food stamps, and [employer] [employer] resources for transportation. FOB showed this advertising copywriter that did get a diaper bag to hospital of supplies including diapers. FOB got some formula, which were cans of fluid formula. Educated MOB, FOB, and MOB?s mother that a can of dry formula that can be mixed will last longer and may be less expensive. MOB?s mother voiced agreement and talked about getting baby approved water to mix the formula in. Spoke with [facility] and updated. [facility] reports now that supplies have been verified will likely meet with at the home in [place] sometime tomorrow when discharged. [facility] wants to be notified when MOB and baby are discharged. CS u[updated MOB is discharging to hotel status today and baby remain for another day. [facility] plans to call MOB in the morning to touch base. Assessment: Initially upon meeting with MOB today the MOB had poor eye contact, was not talking and mood appearing sullen. MOB started to talk after some time and shared frustration and fears about [facility]. MOB was attentive baby, changing a diapers. MOB handled baby gently and was calm. MOB and FOB able to talk about decision for MOB and baby to go to cousin?s home as healthy. MOB reports this will allow FOB time to save some money and give both MOB and FOB time to regroup and focus on self care needs. FOB calm, quiet but did give input when directly asked. MOB declines medical social worker to help with counseling referral stating will make appointment on own. MOB accepting [facility] referral to be made. Second visit with MOB, MOB sitting in chair holding baby getting ready to feed. MOB's mom assisting with getting bottle ready and MOB's directing her mother on how to help MOB, such has help adjust baby in MOB's arms. MOB's mother supportive, calm, and encouraging MOB on different ways to hold baby to get baby to burp. Intervention: Information on [employer] application process given today. Medicaid application given. [place] medicaid transportation resources given. Collaborated with [facility] and [facility] staff today. Supportive listening, reflection and encouragement given to MOB today. Plan: MOB to discharge today to hot status. Baby to remain in hospital one more day. [facility] will follow family in the community and will go to home in [place] when MOB and baby leave. Hospital staff to call [facility] at [phone], extension [phone]; okay to leave a message of discharge time. Should new concerns arise about plan in place please call covering medical social worker for [facility] labor and delivery unit at [phone] as this advertising copywriter out of office tomorrow. [facility] referral to be made. No other services requested or indicated. -GERARD Mcdaniels, [employer]
--- NOTE | 2018-12-22 17:06 | PCM.DC.SUM ---
Discharge Date and Diagnosis Date of Admission: 12/16/18 Date of Discharge: 12/21/18 - Primary Discharge Diagnosis Gestational hypertension H/o PE Hospital Course and Treatment Summary of Care Provided: The patient is a 23 year old female who was admitted for induction for gestational hypertension. She had a for failure to dilate. Please see operative report. Hospital course is as follows: (1) Heme - PP anemia. On iron for acute blood loss anemia. (2) H/o PE - on lovenox prophylaxis bid in hospital and then once daily at discharge. Discussed with . (3) Social & mood - social work consult. (4) Gestational hypertension - BP's normalized after delivery. (5) GI - tolerating regular diet when discharged. (6) - adequated UOP and no voiding disfunction. (7) Tachycardia - EKG showed sinus tachycardia. Likely d/t anemia & known h/o tachycardia. (8) ID - patient treated with gentamycin & ancef for possible endometritis. Patient was discharged home on POD#4 with f/u instructions & medications. - Physical Exam Vital Signs Temp Pulse Resp BP Pulse Ox 98.1 F 74 16 128/68 H 99 12/21/18 16:22 12/21/18 16:22 12/21/18 16:22 12/21/18 16:22 12/21/18 16:22 Oxygen Delivery Method Room Air Weight: 266 lb 1.567 oz Body Mass Index (BMI) 45.6 Discharge Diet: No Restrictions Discharge Activity: May not drive while taking narcotic pain medications., May Shower May resume sexual activity in: 6 weeks Weight Bearing Status: Weight bearing as tolerated Call your doctor if your incision/area has: Continuous Slow Oozing, Sudden Increased Bleeding, Increased Pain/ Swelling, Foul Smelling Discharge, Swelling at the incision site Home Medications: Medications to take at Discharge RX: Vits [Prenatabs FA ] 1 tablet PO DAILY 12/16/18 Docusate Sodium [Colace] 100 mg PO BID PRN PRN #60 cap 12/20/18 RX: Enoxaparin [Lovenox] 40 mg SUBCUT DAILY #30 syringe 12/20/18 RX: Ferrous Sulfate 325 mg PO DAILY #30 tab 12/20/18 RX: Ibuprofen [Motrin] 600 mg PO Q6H PRN PRN #40 tab 12/20/18 RX: Oxycodone [Oxyir] 5 mg PO Q6H PRN PRN 7 Days #28 tab 12/20/18 Following Prescrptions Were Given to Patient: RX: Ibuprofen [Motrin] 600 mg PO Q6H PRN PRN #40 tab PRN Reason: Mild Pain (-01/01) RX: Oxycodone [Oxyir] 5 mg PO Q6H PRN PRN 7 Days #28 tab PRN Reason: Mod-Severe Pain (-08/03) Docusate Sodium [Colace] 100 mg PO BID PRN PRN #60 cap PRN Reason: Constipation RX: Enoxaparin [Lovenox] 40 mg SUBCUT DAILY #30 syringe RX: Ferrous Sulfate 325 mg PO DAILY #30 tab Primary Care Physician: Td Anderson MD [Primary Care Provider] - Medical Necessity - Tobacco Use Smoking Status: Never smoker Meaningful Use Info Meaningful Use Diagnoses (Choose all that apply): None applicable
== END 2018-12-21 17:20 | disposition home or self-care (01) | DRG 540 ==
PROVIDERS: Obstetrics & Gynecology; Admitting Provider Obstetrics & Gynecology; Family Provider Family Medicine; PCP Family Medicine; Referring Provider Obstetrics & Gynecology; Visit Provider Obstetrics & Gynecology
DX: O32.4XX0 Maternal care for high head at term, not applicable or unspecified (principal); O13.4 Gestational [pregnancy-induced] hypertension without significant proteinuria, complicating childbirth; O75.3 Other infection during labor; Z3A.39 39 weeks gestation of pregnancy; D62 Acute posthemorrhagic anemia; O90.81 Anemia of the puerperium; O69.81X0 Labor and delivery complicated by cord around neck, without compression, not applicable or unspecified; O99.214 Obesity complicating childbirth; E66.9 Obesity, unspecified; O34.211 Maternal care for low transverse scar from previous cesarean delivery; O98.82 Other maternal infectious and parasitic diseases complicating childbirth; B95.1 Streptococcus, group B, as the cause of diseases classified elsewhere; O99.344 Other mental disorders complicating childbirth; F31.81 Bipolar II disorder; Z37.0 Single live birth; Z22.330 Carrier of Group B streptococcus; Z86.711 Personal history of pulmonary embolism
CPT/HCPCS: 59050; 80053; 80170; 82565; 82570; 84156; 84439; 84443; 84450; 84460; 84481; 84550; 85027; 85610; 85730; 86850; 86900; 93005; 99218; J7120; A4216; G0378; J2405

== ENCOUNTER 2020-02-15 09:30 | Inpatient (IN) | payer MEDICAID, SELFPAY ==
[2020-02-15] VITALS (18 sets, daily range): BP systolic 118–154; BP diastolic 57–94; PULSE 83–98; RESP 16–20; TEMP 36.1–36.6; O2SAT 95–100; BMI 44.4
[2020-02-15] MEDS: Lactated Ringers 1,000 ML 999 ML IV (10:10)
[2020-02-15 10:34] LABS: Absolute Lymphocyte Count 2.13 X10^3/uL (0.83-4.51); Absolute Neutrophil Count 7.9 X10^3/uL (2.0-7.7); Basophil# 0.01 X10^3/uL; Basophil% 0.1 % (0-1); Eosinophil# 0.08 X10^3/uL; Eosinophils% 0.7 % (0-5); Hematocrit 34.8 % (37-47); Hemoglobin 11.2 g/dL (12.0-15.0); Lymphocyte # 2.13 X10^3/ul (4.0); Mean Corp Hgb Conc 32.2 g/dL (32-36); Mean Corpuscular Hgb 28.1 pg (27.0-32.0); Mean Corpuscular Volume 87.4 fL (81-99); Monocyte# 0.99 X10^3/uL; Monocyte% 8.8 % (0-10); NRBC Flagged by Analyzer 0 % (0-5); Neutrophil # 7.94 X10^3/uL (2.7-7.7); Neutrophil % 70.7 % (47-70); Platelet Count 224 K/mm3 (150-450); RBC Distribution Width CV 14.7 % (11.6-14.6); RBC Distribution Width SD 47.5 fl (35.1-43.9); Red Blood Count 3.98 M/mm3 (4.2-5.4); White Blood Count 11.2 K/mm3 (4.4-11.0)
[2020-02-15 10:41] LABS: Partial Thromboplast Time 27.5 Seconds (24.1-36.2); Prothrombin Time (Protime)PT. 12.7 SECONDS (11.7-14.9)
[2020-02-15] MEDS: Lactated Ringers 1,000 ML 150 ML IV (11:11)
[2020-02-15 11:13] LABS: Amphetamine Urine VISTA NEGATIVE (<1000 ng/mL); Barbiturate Urine VISTA NEGATIVE (< 200 ng/mL); Benzodiazepine Urine VISTA NEGATIVE (< 200 ng/mL); Cocaine Urine VISTA NEGATIVE (< 300 ng/mL); Ecstacy Urine VISTA NEGATIVE (< 500 ng/mL); Methadone Urine VISTA NEGATIVE (< 300 ng/mL); PCP Urine VISTA NEGATIVE (< 25 ng/mL); THC Urine VISTA NEGATIVE (< 50 ng/mL); Vista UDS pH Range 6
[2020-02-15] MEDS: Sodium Citrate/Citric Acid 30 ML UDC PO (11:41)
--- NOTE | 2020-02-15 13:04 | HP.PCM_ITS ---
History Date of Admission: 12/16/18 Final INES: 02/10/20 Final INES Source: US <20 weeks Gestational age: 40 Weeks and 5 Days History of this : This is a 24 year-old, G [], P [], at 40 weeks gestational age. Surgical History: Surgical History (Last Updated 02/15/20 @ 13:[address] Samy Dinh) Previous section Z98.891 Allergies adhesive tape Allergy (Verified 02/15/20 09:49) Rash amoxicillin Allergy (Verified 12/16/18 09:43) Rash Home Medications: Home Medications Vits [Prenatabs FA ] 1 tablet PO DAILY 12/16/18 Albuterol Inhaler [Ventolin Hfa (SP)] 2 puff INHALATION Q4H PRN PRN 02/15/20 Famotidine [Pepcid] 40 mg PO DAILY PRN PRN 02/15/20 Heparin Injection 10,000 units SUBCUT BID 02/15/20 Smoking Status: Never smoker Alcohol: None Substance Use Type: Marijuana Number of Fetus(es): 1 History Past Pregnancies: Past Pregnancies Delivery Date Name GA/ Weeks Outcome Route Wt Sex Labor Length Anesthesia Delivery Location Provider FOB Labs: See [facility] H&P Physical Exam Vitals: Vital Signs Temp Pulse Resp BP Pulse Ox 97.2 F L 84 20 H 144/75 H 97 02/15/20 10:00 02/15/20 10:00 02/15/20 10:00 02/15/20 10:00 02/15/20 10:00 General: Alert, Oriented x3 Abdomen: Soft, Non-Distended, Gravid Neurological: Cranial nerves II-XII grossly intact 3D ARTIST: Normal external genitalia Assessment/Plan All Active Problems Gestational hypertension (Acute) History of pulmonary embolism (Acute) Obesity affecting (Acute) History of depression (Acute) Positive GBS test (Acute) Bipolar 2 disorder (Acute) This is a 24 year-old, , at 40&5 weeks gestational age. Admit to L&D MOD - patient counseled extensively on R/B/A and now wishes to proceed with c- section control - patient declines tubal ligation at this time H/o PE - plan for PP lovenox
--- NOTE | 2020-02-15 13:11 | OP.PCM_ITS ---
Report of Operation Surgery/Procedure Performed:: Repeat section Description of Surgical Findings:: Normal maternal uterus and adnexa Delivery Classification: Scheduled Final INES: 02/10/20 Gestational age: 40 Weeks and 5 Days legislative correspondent: Codie Sherman Type of Anesthesia:: Spinal Date of Procedure: 02/15/20 Pre-Operative Diagnosis: Prior section Post-Operative Diagnosis: Same Indications for : Repeat Elective Description of Procedure: Patient taken to OR where spinal anesthesia was placed. She was prepped and draped in normal sterile fashion in a dorsal supine position with a leftward tilt. After ensuring adequacy of anesthesia the Pfannensteil skin incision was made and carried through to the underlying fascia with a bovie. The fascia was incised in the midline and carried laterally with the Negron scissors. The rectus muscles were in the midline and the peritoneum was entered bluntly. The bladder flap was dissected down carefully with the Metzenbaum scissors and blunt dissection. Bladder blade inserted. The uterus was incised in a transverse fashion and then incision extended with cephalocaudad traction. The fetus was vertex and the head was brought to the incision in the flexed position. With good fundal pressure the head easily delivered. The head was gently guided to allow delivery of anterior & posterior shoulders. No excess traction placed on head. The body delivered easily. The 3VC cord was clamped and cut after 1 minute delay. The handed off to the waiting RN. The placenta was delivered w/ gentle traction and fundal massage and the uterus was exteriorized and cleared of all clots and debris. The uterine incision was closed with 1 vicryl suture in a running locked fashion. A second imbricating layer of monocryl was placed. The uterus was returned to the peritoneal cavity. The pelvis was irrigated & then cleared of all clots and debris. The uterine incision was reexamined and found to be hemostatic. Some linette was placed over the uterine incision due to the denuded areas. The parietal peritoneum was reapproximated with running 3-0 vicryl suture. The fascia was closed with looped PDS suture in a running standard fashion. The subcutaneous tissue was examined & any bleeding bovie cauterized. The subcutaneous tissue was reapproximated with plain gut suture. The skin was closed in a subcuticular fashion by the COMPUTER INSTALLER with me present in the labor and delivery suite. I performed the remainder of the procedure w/ assistance. Amniotic Membrane Rupture Type: Artificial Amniotic Fluid Description: Clear Placenta Disposition: [facility] Drain: Castaneda to straight drain Fluids Replaced: 1500ml Cord Entanglement: None Esitmated Blood Loss (ml): 700ml Gender: Female - Esthela; weight = 7-13 (1 minute): 8 (5 minute): 9 Delayed cord clamping: Yes Antibiotic Given: Ancef 3 grams IV x1 Complications: None - Admit VTE Documentation VTE Present on Admission: No
[2020-02-15] MEDS: Oxytocin 30 units/NS 500 ml 30 UNITS/500 ML IV.SOLN 167 UNITS IV (13:20)
[2020-02-15] MEDS: Lactated Ringers 1,000 ML 100 ML IV ×2 (16:57→23:39)
[2020-02-15] MEDS: Ketorolac 30 MG/ML Syringe IV ×2 (18:12→23:39)
[2020-02-16] VITALS (9 sets, daily range): BP systolic 125–137; BP diastolic 55–79; PULSE 86–100; RESP 14–18; TEMP 36.3–36.6; O2SAT 95–100
[2020-02-16] MEDS: Enoxaparin 40 MG/0.4 ML Syringe SC (00:20)
[2020-02-16] MEDS: Acetaminophen 500 MG Tablet 1000 MG PO (00:45)
--- NOTE | 2020-02-16 04:17 | NURSING ---
Jonna Martinez called and informed of pt c/o pain level 6 to abdomen, having had tylenol and mylicon.order recieved for dilaudid 1mg IV then called with pts complaint and anesthsia order for dilaudid ok with order.
[2020-02-16] MEDS: HYDROmorphone 1 MG/ML Syringe IV (04:22)
[2020-02-16] MEDS: Ketorolac 30 MG/ML Syringe IV ×4 (05:24→23:42)
[2020-02-16 05:25] LABS: Hematocrit 31.8 % (37-47); Hemoglobin 10.4 g/dL (12.0-15.0); Mean Corp Hgb Conc 32.7 g/dL (32-36); Mean Corpuscular Hgb 28.7 pg (27.0-32.0); Mean Corpuscular Volume 87.6 fL (81-99); Mean Platelet Vol. 10.5 fl (6.2-12.0); Platelet Count 183 K/mm3 (150-450); RBC Distribution Width CV 14.8 % (11.6-14.6); RBC Distribution Width SD 47.3 fl (35.1-43.9); Red Blood Count 3.63 M/mm3 (4.2-5.4); White Blood Count 10.5 K/mm3 (4.4-11.0)
[2020-02-16] MEDS: 0.9% Saline Lock 10 ML Syringe IV ×2 (05:25→23:42)
--- NOTE | 2020-02-16 09:05 | PN.OBGYN_ITS ---
Subjective: Pain well controlled. Average lochia. Somewhat tired and overwhelmed. Complaining of sore nipples. Has been up to urinate without difficulty. T olerating regular diet. - Physical Exam Vitals/I&O's: Vital Signs Temp Pulse Resp BP Pulse Ox 97.3 F L 92 17 125/55 H 97 02/16/20 08:00 02/16/20 08:00 02/16/20 08:00 02/16/20 08:00 02/16/20 08:00 Oxygen Delivery Method Room Air Weight: 117.48 kg Body Mass Index (BMI) 44.4 Intake and Output for Last 24 Hours 02/14/20 02/15/20 02/16/20 23:59 23:59 23:59 Intake Total 6082.5 / 6082.5 959.17 / 959.17 Output Total 650 / 650 1150 / 1150 Balance 5432.5 / 5432.5 -190.83 / -190.83 General: Alert, Cooperative, No apparent distress Abdomen: Soft, Non-Distended, Obese, Tender - Appropriately Extremities: Edema - 2+ Skin: Incision - Her bandage is clean dry and intact Laboratory Results 02/15/20 10:00: WBC 11.2 H, RBC 3.98 L, Hgb 11.2 L, Hct 34.8 L, MCV 87.4, MCH 28.1, MCHC 32.2, RDW Std Deviation 47.5 H, RDW Coeff of Chely 14.7 H, Plt Count 224, MPV 11.0, Immature Gran % (Auto) 0.700, Neut % (Auto) 70.7 H, Lymph % (Auto) 19.0, [place] % (Auto) 8.8, Eos % (Auto) 0.7, Baso % (Auto) 0.1, Absolute Neuts (auto) 7.9 H, Absolute Lymphs (auto) 2.13, Nucleated RBC % 0 02/15/20 10:00: Blood Type A POSITIVE, Antibody Screen NEGATIVE 02/15/20 10:00: PT 12.7, INR 1.0, APTT 27.5 02/15/20 10:30: Urine Opiates Screen NEGATIVE, Urine Methadone Screen NEGATIVE, Ur Barbiturates Screen NEGATIVE, Ur Phencyclidine Scrn NEGATIVE, Ur Amphetamines Screen NEGATIVE, U Methamphetamin-MDMA NEGATIVE, U Benzodiazepines Scrn NEGATIVE, Urine Cocaine Screen NEGATIVE, U Cannabinoids Screen NEGATIVE, Ur Drug Screen Comment 02/16/20 05:18: WBC 10.5, RBC 3.63 L, Hgb 10.4 L, Hct 31.8 L, MCV 87.6, MCH 28.7, MCHC 32.7, RDW Std Deviation 47.3 H, RDW Coeff of Che[place] 14.8 H, Plt Count 183, MPV 10.5 Current Medications Acetaminophen (Tylenol) 1,000 mg PO Q8H PRN PRN Reason: Pain Score 1-3/10 Last Admin: 02/16/20 00:45 Dose: 1,000 mg Documented by: Bisacodyl (Dulcolax) 10 mg RECTAL UD PRN PRN Reason: If no BM Enoxaparin Sodium (Lovenox) 40 mg SC DAILY@0600 [facility] Last Admin: 02/16/20 00:20 Dose: 40 mg Documented by: Hydrocortisone (Hytone) 1 applic TOPICAL TID PRN PRN; Protocol PRN Reason: Discomfort Naloxone HCl 4 mg/ Dextrose 504 mls @ 0 mls/hr IV .Q0M PRN; Protocol PRN Reason: Respiratory depression Ibuprofen (Motrin) 600 mg PO Q6H PRN PRN PRN Reason: Pain Score 1-3/10 Ketorolac Tromethamine (Toradol (Bkc)) 30 mg IV Q6 DENIA Stop: 02/17/20 12:01 Last Admin: 02/16/20 05:24 Dose: 30 mg Documented by: Methylergonovine Maleate (Methergine) 0.2 mg IM X1 PRN PRN Reason: Uterine Atony Nalbuphine HCl (Nubain) 5 mg IV Q3H PRN PRN PRN Reason: ITCHING Stop: 02/16/20 13:43 Naloxone HCl (Narcan) 0.02 mg IV Q1M PRN PRN Reason: RR <10 and pt unresponsive Ondansetron HCl (Zofran) 4 mg IV Q4H PRN PRN PRN Reason: Nausea Ondansetron HCl (Zofran Odt) 4 mg PO Q4H PRN PRN PRN Reason: ITCHING Stop: 02/16/20 13:43 Oxycodone HCl (Oxyir) 5 - 10 mg PO Q4H PRN PRN PRN Reason: Pain Score 4-10/10 Prochlorperazine Edisylate (Compazine Iv) 10 mg IV Q6H PRN PRN PRN Reason: NAUSEA Senna/Docusate Sodium (Senokot-S, Khloe-Colace) 0 tablet PO DAILY PRN PRN Reason: Constipation Simethicone (Mylicon) 80 mg PO PCHS PRN PRN Reason: Indigestion/stomach pain Last Admin: 02/16/20 00:45 Dose: 80 mg Documented by: Sodium Chloride () 5 - 15 ml IV UD PRN PRN Reason: SALINE FLUSH Last Admin: 02/16/20 05:25 Dose: 10 ml Documented by: Medical Necessity - Tobacco Use Smoking Status: Never smoker Assessment/Plan All Active Problems (Last Updated 02/15/20 @ 13:[address] Samy Dinh) Gestational hypertension (Acute) History of pulmonary embolism (Acute) Obesity affecting (Acute) History of depression (Acute) Positive GBS test (Acute) Bipolar 2 disorder (Acute) Postoperative day #1 status post repeat is breast-feeding and doing well, will have assist patient with breast-feeding today Patient's affect is somewhat flat and seems somewhat sad. Will have social service evaluate patient and make sure she has resources for discharge routine postop care
--- NOTE | 2020-02-16 11:00 | CASEMGMT ---
Social Work Assessment Labor and Delivery Unit Date of Referral: 02/15/2020 Time of Referral: 15:04 Date of Intervention: 02/16/2020 Time of Intervention: 11A Reason for Referral: POSITIVE FOR THC DURING FIRST TRIMESTER, HX DEPRESSION AND BIPOLAR DISORDER History obtained from: MEDICAL RECORD AND MOTHER OF BABY (MOB) Household composition: MOB IS LIVING WITH FATHER OF BABY (FOB) LEANNA FR[place], SON RASHIDA [place] AND FOB?S PARENTS. Patient's parent/guardian status: MOB AND FOB HAVE BEEN TOGETHER FOR 3 YEARS. MOB AND FOB HAVE A 1 YEAR OLD SON, RASHIDA AND , JAZMIN. Medical History: MOB HAS DIAGNOSIS OF BIPOLAR DISORDER AND DEPRESSION. MOB REPORTS IS NOT TREATED. BABY GIRL, JAZMIN WAS BORN 02[birth year] WITH SCORES OF 8 AND 9. Educational Status: HIGH SCHOOL GRADUATE Financial Status: MOB AND FOB ARE CURRENTLY UNEMPLOYED. FOB REPORTS HIS PARENTS ASSIST WITH FINANCIAL NEEDS AT THIS TIME. Infant Supplies: MOB REPORTS HAS ALL NEEDS MET FOR BABY INCLUDING DIAPERS, WIPES, CLOTHING, BASSINET, CAR SEAT. MOB IS . Childcare/Caregiver(s): MOB AND FOB ARE PRIMARY CAREGIVERS. MOB REPORTS GOOD SUPPORT FROM FOB?S PARENTS. Transportation: MOB AND FOB DENY ANY ISSUES WITH TRANSPORTATION. Programs/Agencies Involved: [facility], W[facility], [employer] Children Services/Legal Issues: MOB REPORTS HISTORY OF CHILDREN SERVICES INVOLVEMENT WITH 1ST CHILD. MOB STATES THEY ASSISTED WITH SERVICES AND STARTED [facility] FOR RASHIDA. RASHIDA IS NOW ACTIVE WITH [employer]. Behavioral Health Issues: Mental Health History: MOB REPORTS HISTORY OF BIPOLAR DISORDER AND DEPRESSION. MOB STATES IS NOT CURRENTLY TREATED WITH MEDICATION OR COUNSELING. MOB DENIES NEED FOR REFERRAL FOR COUNSELING. Substance Use History: MOB ADMITS TO MARIJUANA USE. MOB STATES HAD POSITIVE TEST BEGINNING OF AND REPORTS ?ALL THE OTHERS WERE NEGATIVE.? EDUCATION ON POSSIBLE NEED FOR CHILDREN SERVICES REFERRAL DUE TO POSITIVE TEST. MOB AWARE BABY?S MECONIUM WILL BE TESTED AND POSITIVE TEST WILL REQUIRE REPORT TO CHILDREN SERVICES. Family/Social Stressors: MOB AND FOB DISCUSSED FIRST AND STRESSORS WITH AND . MOB VOICED HAD LOTS OF ANXIETY AND WAS IN THE HOSPITAL FOR ALMOST 1 WEEK WITH FIRST BABY. MOB STATES IS NOW AND BABYJAZMIN IS ?AGGRESSIVE? WITH FEEDINGS, BUT SO FAR IS DOING WELL. Support Systems: MOB REPORTS GOOD SUPPORT FROM FOB AND FOB?S FAMILY. MOB REPORTS HERE FAMILY LIVES OUT OF TOWN, BUT ARE EXCITED TO MEET BABYJAZMIN. Depression/Shaken Baby/Safe Sleeping REVIEWED AND RESOURCES PROVIDED. ASSESSMENT: DISCUSSED REFERRAL WITH PATIENT?S NURSE, HARIS. PER NURSING, MOB AND FOB HAVE BEEN APPROPRIATE WITH BABY AND PROVIDING CARE FOR BABY. MET WITH MOB AND FOB IN ROOM. INTRODUCED ROLE AND REASON FOR REFERRAL. MOB OPENLY DISCUSSED POSITIVE DRUG SCREEN DURING FIRST TRIMESTER AND STATES ALL OTHER TESTS WERE NEGATIVE. MOB AND FOB REPORT CHILDREN SERVICES WERE INVOLVED AFTER OF SON, RASHIDA. MOB STATES THEY CONNECTED THEM WITH [facility]. MOB AWARE OF POSSIBLE NEED OF REPORT TO CHILDREN SERVICES IF BABY?S MECONIUM IS POSITIVE FOR THC. MOB AND FOB VERBALIZED UNDERSTANDING. MOB REPORTS HISTORY OF BIPOLAR DISORDER AND DEPRESSION AND STATES IS NOT TREATED WITH MEDICATION OR COUNSELING AND DENIES NEED FOR SERVICES. EDUCATION PROVIDED ON POST DEPRESSION AND MOB GIVEN EDUCATIONAL RESOURCES. MOB REPORTS TO HAVE ALL NEEDS MET FOR BABY JAZMIN JIMENEZ. MOB REPORTS GOOD SUPPORT FROM FOB AND FOB?S PARENTS. MOB STATES HER FAMILY LIVES OUT OF TOWN, BUT ARE SUPPORTIVE. FOB REPORTS IS CURRENTLY UNEMPLOYED, BUT HOPEFUL TO BE WORKING ONCE PANDEMIC IS OVER. FOB AND MOB REPORTS FOB?S PARENTS HELP WITH FINANCES. DISCUSSED COMMUNITY RESOURCES. MOB STATES IS ACTIVE WITH [facility] [facility] [employer] AND DENIES ANY OTHER NEEDS. NURSE UPDATED ON THIS WORKER?S ASSESSMENT. PLAN: HOME WITH RESOURCES PROVIDED. WILL WATCH FOR JAZMIN FREY'S MECONIUM RESULTS. No other services requested or indicated. -Becky Gibson, HOUSEKEEPING ASSOCIATE, SIDE PANEL HANGER
[2020-02-16] MEDS: oxyCODONE 5 MG Tablet PO ×2 (13:03→22:41)
--- NOTE | 2020-02-16 23:57 | NURSING ---
see infant note on formula usage and this RN education.
[2020-02-17 01:36] VITALS: BP 130/71; PULSE 94; RESP 14; TEMP 36.5
[2020-02-17] MEDS: Enoxaparin 40 MG/0.4 ML Syringe SC (05:26)
[2020-02-17] MEDS: oxyCODONE 5 MG Tablet PO ×2 (05:26→09:27)
[2020-02-17] MEDS: Senna/Docusate Sodium 1 Tablet PO (06:10)
[2020-02-17] MEDS: Ibuprofen 600 MG Tablet PO ×2 (08:29→14:53)
[2020-02-17 09:00] VITALS: BP 148/69; PULSE 101; RESP 16; TEMP 36.4
[2020-02-17 13:00] VITALS: BP 143/82; PULSE 115; RESP 16; TEMP 36.6
--- NOTE | 2020-02-17 13:12 | PCM.PN.OB ---
Subjective: Pain well controlled. Average lochia. No nausea or vomiting. Positive flatus but no bowel movement. - Physical Exam Vitals/I&O's: Vital Signs Temp Pulse Resp BP Pulse Ox 97.6 F L 101 H 16 148/69 H 97 02/17/20 09:00 02/17/20 09:00 02/17/20 09:00 02/17/20 09:00 02/16/20 13:45 Oxygen Delivery Method Room Air Weight: 117.48 kg Body Mass Index (BMI) 44.4 Intake and Output for Last 24 Hours 02/15/20 02/16/20 02/17/20 23:59 23:59 23:59 Intake Total 6082.5 / 6082.5 959.17 / 959.17 1000 / 1000 Output Total 650 / 650 1150 / 1150 Balance 5432.5 / 5432.5 -190.83 / -190.83 1000 / 1000 General: Alert, Cooperative, No apparent distress Abdomen: Soft, Non-Distended, Obese, Tender - Mildly Skin: Incision - Bandage is clean dry and intact Current Medications Acetaminophen (Tylenol) 1,000 mg PO Q8H PRN PRN Reason: Pain Score 1-3/10 Last Admin: 02/16/20 00:45 Dose: 1,000 mg Documented by: Bisacodyl (Dulcolax) 10 mg RECTAL UD PRN PRN Reason: If no BM Enoxaparin Sodium (Lovenox) 40 mg SC DAILY@0600 [facility] Last Admin: 02/17/20 05:26 Dose: 40 mg Documented by: Hydrocortisone (Hytone) 1 applic TOPICAL TID PRN PRN; Protocol PRN Reason: Discomfort Naloxone HCl 4 mg/ Dextrose 504 mls @ 0 mls/hr IV .Q0M PRN; Protocol PRN Reason: Respiratory depression Ibuprofen (Motrin) 600 mg PO Q6H PRN PRN PRN Reason: Pain Score 1-3/10 Last Admin: 02/17/20 08:29 Dose: 600 mg Documented by: Methylergonovine Maleate (Methergine) 0.2 mg IM X1 PRN PRN Reason: Uterine Atony Naloxone HCl (Narcan) 0.02 mg IV Q1M PRN PRN Reason: RR <10 and pt unresponsive Ondansetron HCl (Zofran) 4 mg IV Q4H PRN PRN PRN Reason: Nausea Oxycodone HCl (Oxyir) 5 - 10 mg PO Q4H PRN PRN PRN Reason: Pain Score 4-10/10 Last Admin: 02/17/20 09:27 Dose: 10 mg Documented by: Prochlorperazine Edisylate (Compazine Iv) 10 mg IV Q6H PRN PRN PRN Reason: NAUSEA Senna/Docusate Sodium (Senokot-S, Khloe-Colace) 0 tablet PO DAILY PRN PRN Reason: Constipation Last Admin: 02/17/20 06:10 Dose: 2 tablet Documented by: Simethicone (Mylicon) 80 mg PO PCHS PRN PRN Reason: Indigestion/stomach pain Last Admin: 02/17/20 06:10 Dose: 80 mg Documented by: Sodium Chloride () 5 - 15 ml IV UD PRN PRN Reason: SALINE FLUSH Last Admin: 02/16/20 23:42 Dose: 10 ml Documented by: Medical Necessity - Tobacco Use Smoking Status: Never smoker Assessment/Plan All Active Problems (Last Updated 02/15/20 @ 13:[address] Samy Dinh) Gestational hypertension (Acute) History of pulmonary embolism (Acute) Obesity affecting (Acute) History of depression (Acute) Positive GBS test (Acute) Bipolar 2 disorder (Acute) Postoperative day #2 status post repeat section. Patient is doing well. is bottlefeeding. Desires discharge home today.
--- NOTE | 2020-02-17 13:21 | DS.PCM_ITS ---
Discharge Date and Diagnosis Date of Admission: 12/16/18 Date of Discharge: 02/17/20 Hospital Course and Treatment Operations: - - repeat LTCS Procedures: None Summary of Care Provided: The patient is a 24 year old female was admitted for repeat section on 02/15/2020. It was performed without difficulty. Postoperatively the patient did well. She had mild acute blood loss anemia appropriate for blood loss d uring surgery. By postoperative day #2 she was ambulating, urinating tolerating regular diet without difficulty. She was discharged home with routine prescriptions and instructions. She is to continue her Lovenox. She is to follow-up for an in office or virtual visit within 1 to 2 weeks. [] - Physical Exam Vitals/I&O's: Vital Signs Temp Pulse Resp BP Pulse Ox 97.6 F L 101 H 16 148/69 H 97 02/17/20 09:00 02/17/20 09:00 02/17/20 09:00 02/17/20 09:00 02/16/20 13:45 Oxygen Delivery Method Room Air Weight: 117.48 kg Body Mass Index (BMI) 44.4 Intake and Output for Last 24 Hours 02/15/20 02/16/20 02/17/20 23:59 23:59 23:59 Intake Total 6082.5 / 6082.5 959.17 / 959.17 1000 / 1000 Output Total 650 / 650 1150 / 1150 Balance 5432.5 / 5432.5 -190.83 / -190.83 1000 / 1000 Current Medications Acetaminophen (Tylenol) 1,000 mg PO Q8H PRN PRN Reason: Pain Score 1-3/10 Last Admin: 02/16/20 00:45 Dose: 1,000 mg Documented by: Bisacodyl (Dulcolax) 10 mg RECTAL UD PRN PRN Reason: If no BM Enoxaparin Sodium (Lovenox) 40 mg SC DAILY@0600 [facility] Last Admin: 02/17/20 05:26 Dose: 40 mg Documented by: Hydrocortisone (Hytone) 1 applic TOPICAL TID PRN PRN; Protocol PRN Reason: Discomfort Naloxone HCl 4 mg/ Dextrose 504 mls @ 0 mls/hr IV .Q0M PRN; Protocol PRN Reason: Respiratory depression Ibuprofen (Motrin) 600 mg PO Q6H PRN PRN PRN Reason: Pain Score 1-3/10 Last Admin: 02/17/20 08:29 Dose: 600 mg Documented by: Methylergonovine Maleate (Methergine) 0.2 mg IM X1 PRN PRN Reason: Uterine Atony Naloxone HCl (Narcan) 0.02 mg IV Q1M PRN PRN Reason: RR <10 and pt unresponsive Ondansetron HCl (Zofran) 4 mg IV Q4H PRN PRN PRN Reason: Nausea Oxycodone HCl (Oxyir) 5 - 10 mg PO Q4H PRN PRN PRN Reason: Pain Score 4-10/10 Last Admin: 02/17/20 09:27 Dose: 10 mg Documented by: Prochlorperazine Edisylate (Compazine Iv) 10 mg IV Q6H PRN PRN PRN Reason: NAUSEA Senna/Docusate Sodium (Senokot-S, Khloe-Colace) 0 tablet PO DAILY PRN PRN Reason: Constipation Last Admin: 02/17/20 06:10 Dose: 2 tablet Documented by: Simethicone (Mylicon) 80 mg PO PCHS PRN PRN Reason: Indigestion/stomach pain Last Admin: 02/17/20 06:10 Dose: 80 mg Documented by: Sodium Chloride () 5 - 15 ml IV UD PRN PRN Reason: SALINE FLUSH Last Admin: 02/16/20 23:42 Dose: 10 ml Documented by: Discharge Diet: No Restrictions Discharge Activity: Return to Normal Activity, May Not Drive - for 2 weeks, May not drive while taking narcotic pain medications., May Shower, May Take a Tub Bath - in 7 days. May resume sexual activity in: 4-6 weeks Additional Activity Instructions:: Nothing in the vagina for 4-6 weeks. You may return to work/school in 6 weeks. Call your doctor if your incision/area has: Continuous Slow Oozing, Sudden Increased Bleeding, Increased Pain/ Swelling, Increased Redness, Foul Smelling Discharge Call your doctor if you observe: Fever of 101 or Higher, Using more than one pad per hour - for 2 hours Suture Line Care: Avoid Pulling/Pushing, Avoid Pinching/Bending Cleanse incision/area with: Keep Dressing Clean & Dry Home Medications: Medications to take at Discharge Vits [Prenatabs FA ] 1 tablet PO DAILY 12/16/18 Albuterol Inhaler [Ventolin Hfa] 2 puff INHALATION Q4H PRN PRN 02/15/20 Famotidine [Pepcid] 40 mg PO DAILY PRN PRN 02/15/20 Enoxaparin Sodium [Lovenox] 100 mg SQ DAILY #30 syringe 02/17/20 Ibuprofen [Motrin] 800 mg PO TID PRN PRN #60 tab 02/17/20 Oxycodone [Oxyir] 5 mg PO Q6H PRN PRN 7 Days #28 tab 02/17/20 Following Prescrptions Were Given to Patient: Enoxaparin Sodium [Lovenox] 100 mg SQ DAILY #30 syringe Transmission Status: Received by [facility] Ibuprofen [Motrin] 800 mg PO TID PRN PRN #60 tab PRN Reason: Pain Transmission Status: Received by [facility] [place] [address] Oxycodone [Oxyir] 5 mg PO Q6H PRN PRN 7 Days #28 tab PRN Reason: severe pain Transmission Status: Received by [facility] [place] [address] Primary Care Physician: Td Anderson MD [Primary Care Provider] - Please Follow Up With: Samy Dinh - Call to make an appointment for an incision check in 1-2 [phone] When: You will need a post check in 6 weeks. Medical Necessity - Tobacco Use Smoking Status: Never smoker Meaningful Use Info Meaningful Use Diagnoses (Choose all that apply): None applicable
--- NOTE | 2020-02-17 13:21 | PCM.DCCSEC ---
Discharge Diet: No Restrictions Discharge Activity: Return to Normal Activity, May Not Drive - for 2 weeks, May not drive while taking narcotic pain medications., May Shower, May Take a Tub Bath - in 7 days. May resume sexual activity in: 4-6 weeks Lifting Restrictions: 20 pounds Additional Activity Instructions:: Nothing in the vagina for 4-6 weeks. You may return to work/school in 6 weeks. Call your doctor if your incision/area has: Continuous Slow Oozing, Sudden Increased Bleeding, Increased Pain/ Swelling, Increased Redness, Foul Smelling Discharge Call your doctor if you observe: Fever of 101 or Higher, Using more than one pad per hour - for 2 hours Suture Line Care: Avoid Pulling/Pushing, Avoid Pinching/Bending Cleanse incision/area with: Keep Dressing Clean & Dry Additional Instructions: If you experience any of the following, contact your healthcare provider. Bleeding that soaks a pad every hour for 2 hours Fever 100.4 or higher Unrelieved incision or abdominal pain Swelling, redness, discharge or bleeding from your incision or episiotomy site Your incision begins to separate Problems urinating (including inability to urinate or burning while urinating). Visual changes Severe headache Flu-like symptoms Pain or redness in one of both of your breasts Pain, warmth, tenderness or swelling in your legs, especially the calf area Frequent nausea and vomiting Symptoms of depression or anxiety If you experience any of the following, call 911 or go to the nearest Emergency Room. Chest pain Problems breathing Seizure activity Partial or complete paralysis of a body part, slurred speech, weakness or drooping of the face, or a sudden inability to walk or hold your balance Allergies/Adverse Reactions: Allergies adhesive tape Allergy (Verified 02/15/20 09:49) Rash amoxicillin Allergy (Verified 12/16/18 09:43) Rash Medications to take at Discharge Vits [Prenatabs FA ] 1 tablet PO DAILY 12/16/18 Albuterol Inhaler [Ventolin Hfa] 2 puff INHALATION Q4H PRN PRN 02/15/20 Famotidine [Pepcid] 40 mg PO DAILY PRN PRN 02/15/20 Enoxaparin Sodium [Lovenox] 100 mg SQ DAILY #30 syringe 02/17/20 Ibuprofen [Motrin] 800 mg PO TID PRN PRN #60 tab 02/17/20 Oxycodone [Oxyir] 5 mg PO Q6H PRN PRN 7 Days #28 tablet 02/17/20 The following prescriptions were given: Enoxaparin Sodium [Lovenox] 100 mg SQ DAILY #30 syringe Transmission Status: Pending to [facility] Ibuprofen [Motrin] 800 mg PO TID PRN PRN #60 tab PRN Reason: Pain Transmission Status: Pending to [facility] Oxycodone [Oxyir] 5 mg PO Q6H PRN PRN 7 Days #28 tablet PRN Reason: severe pain Transmission Status: Received by [facility] Follow-Up: Call to make an appointment with your doctor for an incision check in 1-2 weeks. You will also need a 6 week post- follow up appointment. Test results from this visit will be discussed in further detail at your follow-up appointment, if applicable. Please Follow Up With: Samy Dinh - Call to make an appointment for an incision check in 1-2 [phone] When: You will need a post check in 6 weeks. Primary Care Physician: Td Anderson MD [Primary Care Provider] -
--- NOTE | 2020-02-17 15:32 | NURSING ---
1500 Discharged to home with baby in wheelchair to car. States she wants to go home today and feels like she is able to care for herself and her baby.
== END 2020-02-17 15:00 | disposition home or self-care (01) | DRG 540 ==
PROVIDERS: Admitting Provider Obstetrics & Gynecology; Family Provider Family Medicine; PCP Family Medicine; Referring Provider Obstetrics & Gynecology; Visit Provider Obstetrics & Gynecology
PROC: (CPT 59514; principal; 2020-02-15 11:45)
DX: O65.5 Obstructed labor due to abnormality of maternal pelvic organs (principal); O34.219 Maternal care for unspecified type scar from previous cesarean delivery; O99.02 Anemia complicating childbirth; D62 Acute posthemorrhagic anemia; O99.824 Streptococcus B carrier state complicating childbirth; Z3A.40 40 weeks gestation of pregnancy; Z37.0 Single live birth; Z86.711 Personal history of pulmonary embolism; Z88.0 Allergy status to penicillin; F31.9 Bipolar disorder, unspecified; O99.343 Other mental disorders complicating pregnancy, third trimester; F12.90 Cannabis use, unspecified, uncomplicated
CPT/HCPCS: 80307; 85025; 85027; 85610; 85730; 86850; 86900; 86901; 99218; J7120; A4216; G0378; J2405

== ENCOUNTER 2020-03-04 11:30 | Outpatient (RCR) | payer MEDICAID, SELFPAY ==
[2020-02-15 09:46] VITALS: BMI 44.4
[2020-03-04 11:48] VITALS: BP 150/77; PULSE 86; RESP 18; TEMP 36.8; BMI 41.1
--- NOTE | 2020-03-04 13:13 | HP.PCM_ITS ---
(1) Open wound, abdominal wall, lateral Status: Acute Current Visit: Yes Code(s): S31.109A - Unspecified open wound of abdominal wall, unspecified quadrant without penetration into peritoneal cavity, initial encounter (2) Hematoma of obstetric wound Status: Acute Current Visit: Yes Code(s): O90.2 - Hematoma of obstetric wound (3) History of Status: Acute Current Visit: Yes Code(s): Z98.891 - History of uterine scar from previous surgery (4) Prothrombin gene mutation Status: Chronic Current Visit: Yes Code(s): D68.52 - Prothrombin gene mutation History of Present Illness Date of Service: 03/04/20 Chief Complaint: Post op on 02/15/20. Wound opened on 02/22/20 due to a hematoma. History of Wound: Patient is a 24 year old female who presents today with an opened wound of her section scar. She delivered her daughter on 02/15/20 via . Her incision was opened on 02/22/20 due to a hematoma. They have been packing the wound with iodiform gauze. Patient is not able to pack the ulcer herself. It has been 3-4 days since the wound was packed in her HAND CROWN POUNCER's office. She comes in today for further evaluation. Today she denies fever. She states her appetite is ok. Past Medical History Past Medical History: Chronic Problems (Last Updated 02/15/20 @ 13:[address] Samy Dinh MD) Prothrombin gene mutation (Chronic) Past Medical History: History of anemia, Bipolar 2 disorder, blood dyscrasia, Pulmonay embolus, PTSD Surgical History: tonsillectomy, - - sections x 2 (11/2018 and 01/2020) Allergies/Adverse Reactions: Allergies adhesive tape Allergy (Verified 02/15/20 09:49) Rash amoxicillin Allergy (Verified 12/16/18 09:43) Rash Home Medications: Ambulatory Orders Medication Instructions Recorded Vits [Prenatabs FA ] 1 tablet PO DAILY 12/16/18 Albuterol Inhaler [Ventolin Hfa] 2 puff INHALATION Q4H PRN PRN 02/15/20 Famotidine [Pepcid] 40 mg PO DAILY PRN PRN 02/15/20 Enoxaparin Sodium [Lovenox] 100 mg SQ DAILY #30 syringe 02/17/20 Ibuprofen [Motrin] 800 mg PO TID PRN PRN #60 tab 02/17/20 Lives: Spouse/ Significant Other - boyfriend Smoking Status: Never smoker Review of Systems Constitutional: Denies: Chills, Fever Eyes: Denies: Blurred vision, Drainage HEENT: Denies: Difficulty Hearing, Difficulty Swallowing, Sinus Congestion Cardiovascular: Denies: Chest Pain, Palpitations Respiratory: Denies: Cough, Shortness of Breath Gastrointestinal: Denies: Diarrhea, Nausea, Vomiting Musculoskeletal: Denies: Joint Tenderness, Muscle pain Skin: Reports: Wounds - Lower mid abdominal wound Neurological: Denies: Balance problems, Blurred vision, Change in Speech Psychiatric: Reports: Anxiety, Depression Endocrine: Denies: Heat/ Cold Intolerance Hematologic/ Lymphatic: Reports: Anemia - Physical Exam Vital Signs Temp Pulse Resp BP 98.3 F 86 18 150/77 H 03/04/20 11:48 03/04/20 11:48 03/04/20 11:48 03/04/20 11:48 General: Alert, Oriented x3, Cooperative HEENT: Atraumatic Oral: Moist Mucosa Lungs: Clear to auscultation, Normal air movement Cardiovascular: Regular rate, Regular Rhythm Abdomen: Bowel Sounds Present, Soft, Tender Extremities: No edema, Capillary Refill Less than 3 Seconds Skin: Ulcer/ Wound - Lower mid abdominal wound in the center of c/s incision. There is depth with tissue that needs debrided. There is evidence of hematoma at the base of the right side of the wound. Area is extremely tender to palpation. Wound Measurements and Assessment WC - Nurse 1 - General Ulcer Measurement Start: 03/04/20 11:48 Freq: Status: Active Protocol: Activity Type Activity Date Activity User E-Sign Co-Sign Detail Recorded Client Recorded Date Recorded By Document 03/04/20 11:48 MW [id number] 03/04/20 11:55 MW 03/04/20 11:48 Wound Center Nurse 1 [Ulcer Assessment] #1 lower abd dehiscence -Combined with other wound No -Current Size (cm) - Length 4.0 -Current Size (cm) - Width 0.7 -Current Size (cm) - Depth 3.0 -Total Square Cm 2.80 -Date of Last Picture (Recall this 03/04/20 field) -Photo Taken Yes -Epithelialization None Present -Tunneling No -Undermining/Tunneling Yes -Undermining/Tunneling Starts (O' 2 clock) -Undermining/Tunneling Ends (O'clock) 4 -Maximum Distance (cm) 3.5 -Circular Undermining No -Exudate Amt Medium -Exudate Type Sanguineous -Wound Margin Indistinct, Non -Visible -Granulation Amt Medium (34-66%) -Granulation Quality N/A -Slough/Fibrin Yes -Necrosis Amt Small (1-33%) -Necrotic Tissue Type Adherent Slough -Structure Exposed N/A -Texture (Khloe-wound Skin Appearance) Assessed, Localized Edema -Moisture (Khloe-wound Skin Appearance No Abnormality, ) Assessed -Color (Khloe-wound Skin Appearance) No Abnormality, Assessed -Temperature (Khloe-wound Skin No Abnormality Appearance) (Pt Warm) -Tenderness on Palpation (Khloe-wound Yes Skin Appearance) -Ulcer Cleansing Rinsed/ Irrigated with Saline -Foul Odor after Cleansing No -Anesthetic Used 4% Lidocaine Solution [Edema Assessment] -Lower Limb Edema Present No WC - Nurse 2 - General Ulcer CM Notes Start: 03/04/20 11:48 Freq: Status: Active Protocol: Activity Type Activity Date Activity User E-Sign Co-Sign Detail Recorded Client Recorded Date Recorded By Document 03/04/20 12:18 [email or web address] [id number] 03/04/20 12:50 [email or web address] 03/04/20 12:18 Wound Center Nurse 2 [Procedure/Treatment] #1 lower abd dehiscence -Correct Patient No -Correct Side, Site, Position No -Correct Procedure No -Procedure Performed No -Wound/Ulcer Outcome Not Healed -Ulcer Cleansing Rinsed/ Irrigated with Saline -Foul Odor after Cleansing No -Bioengineered Tissue No -Bleeding Controlled with Pressure -Offloading No -Treatment Response Procedure Tolerated Well [See Physician Procedure note for Specifics] Pain Scale: 0-10 Numeric [Pain] -Is Patient Pain Free? Yes Musculoskeletal: No Tenderness to Palpation of Joints or Extremities Neurological: Neuro grossly intact Psych/Mental Status: Appropriate, Flat Affect, - - Patient is very tearful with the evaluation of the wound and with the information and education that was given. Debridement Note Post-Debridement Measurements/Treatment WC - Nurse 2 - General Ulcer CM Notes Start: 03/04/20 11:48 Freq: Status: Active Protocol: Activity Type Activity Date Activity User E-Sign Co-Sign Detail Recorded Client Recorded Date Recorded By Document 03/04/20 12:18 [email or web address] [id number] 03/04/20 12:50 [email or web address] 03/04/20 12:18 Wound Center Nurse 2 #1 lower abd dehiscence -Correct Patient No -Correct Side, Site, Position No -Correct Procedure No -Procedure Performed No -Wound/Ulcer Outcome Not Healed -Ulcer Cleansing Rinsed/ Irrigated with Saline -Foul Odor after Cleansing No -Bioengineered Tissue No -Bleeding Controlled with Pressure -Offloading No -Treatment Response Procedure Tolerated Well Pain Scale: 0-10 Numeric Is Patient Pain Free? Yes No debridement was completed today - With the presence of existing hematoma at the right base of the wound along with a significant amount of biofilm/slough, I am uncomfortable with debriding this wound. Also, the incision was widening further when I was evaluating the wound. Assessment/Plan Active Problems (Last Updated 02/15/20 @ 13:[address] Samy Dinh MD) Prothrombin gene mutation (Chronic) Open wound, abdominal wall, lateral (Acute) History of (Acute) Hematoma of obstetric wound (Acute) Assessment: 1. Open wound, abdominal wall, lateral. 2. Hematoma of obstetric wound. 3. History of . 4. Prothrombin gene mutation (on Lovenox) Plan: Patient is a 24 year old female who [facility] of her section incision wound. She delivered her daughter on 02/15/20 via . Her incision was opened on 02/22/20 due to a hematoma. They have been packing the wound with iodiform gauze. Patient is not able to pack the ulcer herself. It has been 3-4 days since the wound was packed in her HAND CROWN POUNCER's office. Today there is an odor but it most likely is due to the packing not being changed for the past several days. There is no redness or inflammation. Upon examination there is evidence of remaining hematoma in the right base of the ulcer along with significant amount of slough. I did not feel comfortable doing a subcutaneous debridement. The wound also was opening further when I was evaluating it. I spoke to my collaborative physician Dr. Hubbard who stated that this should be further evaluated by the physician who did her ceserean section. I phoned and spoke to Dr. Shepherd (Dr. Samy Dinh' partner) about my concern that this should most likely have a surgical debridment. I would like to have her further evaluated by HAND CROWN POUNCER. I was informed that they do not typically do operative debridments and they send them to general surgery. Dr. Shepherd's office arrange for the patient to be seen by Dr. Larson on Wednesday at 1300. I did state that once the wound is debrided, they could apply a wound VAC to the area preferably the next day after surgery t o make sure there is no further bleeding due to her prothrombin gene mutation and her being on Lovenox. Once the wound is stable we will gladly manage the wound VAC at the [facility]. If she has a wound VAC we would be able to get home health involved to help manage the wound and the Wound VAC. Wound Care today we will place Silvercell dressing into the opened wound until she is evaluated by Dr. Larson. I encouraged the patient to increase her protein intake. Office Visits / Consults: [id number] OV L4 Est - Greater than 45 minutes was spent evaluating patient, organizing care and charting
== END 2020-03-24 23:59 ==
LOC: WC 11:30
PROVIDERS: PCP Family Medicine; Visit Provider Nurse Practitioner Family
DX: O90.0 Disruption of cesarean delivery wound (principal); O90.2 Hematoma of obstetric wound; D68.52 Prothrombin gene mutation; F31.81 Bipolar II disorder; F43.10 Post-traumatic stress disorder, unspecified; F41.9 Anxiety disorder, unspecified; Z79.01 Long term (current) use of anticoagulants; Z79.51 Long term (current) use of inhaled steroids; Z79.1 Long term (current) use of non-steroidal anti-inflammatories (NSAID); Z86.711 Personal history of pulmonary embolism; Z86.2 Personal history of diseases of the blood and blood-forming organs and certain disorders involving the immune mechanism
CPT/HCPCS: 99213; G0463

== ENCOUNTER 2021-11-07 13:19 | Outpatient (CLI) | payer MEDICAID, SELFPAY ==
[2021-11-07 14:08] VITALS: BP 124/69; PULSE 93; RESP 16; TEMP 37.1; O2SAT 99; BMI 38.7
[2021-11-07] MEDS: Penicillin G Benzathine 2.4 MU/4 ML Syringe IM (14:23)
[2021-11-07 14:50] VITALS: BP 129/72; PULSE 72
== END 2021-11-07 23:59 | disposition short-term general hospital (02) ==
LOC: MEDOUTP 13:21
PROVIDERS: PCP Family Medicine; Referring Provider Obstetrics & Gynecology; Visit Provider Obstetrics & Gynecology
DX: O98.111 Syphilis complicating pregnancy, first trimester (principal); A53.9 Syphilis, unspecified; Z3A.00 Weeks of gestation of pregnancy not specified
CPT/HCPCS: 96372

== ENCOUNTER 2021-11-14 13:16 | Outpatient (CLI) | payer MEDICAID, SELFPAY ==
[2021-11-14 13:30] VITALS: BP 123/80; PULSE 86; RESP 16; TEMP 36.1; O2SAT 99
[2021-11-14] MEDS: Penicillin G Benzathine 2.4 MU/4 ML Syringe IM (13:33)
== END 2021-11-14 23:59 | disposition short-term general hospital (02) ==
LOC: MEDOUTP 13:16
PROVIDERS: PCP Family Medicine; Referring Provider Obstetrics & Gynecology; Visit Provider Obstetrics & Gynecology
DX: O98.111 Syphilis complicating pregnancy, first trimester (principal); Z3A.00 Weeks of gestation of pregnancy not specified
CPT/HCPCS: 96372

== ENCOUNTER 2021-11-21 13:23 | Outpatient (CLI) | payer MEDICAID, SELFPAY ==
[2021-11-21 13:28] VITALS: BP 110/74; PULSE 68; RESP 16; TEMP 35.9; O2SAT 96
[2021-11-21] MEDS: Penicillin G Benzathine 2.4 MU/4 ML Syringe IM (13:30)
== END 2021-11-21 23:59 | disposition short-term general hospital (02) ==
LOC: MEDOUTP 13:23
PROVIDERS: PCP Family Medicine; Referring Provider Obstetrics & Gynecology; Visit Provider Obstetrics & Gynecology
DX: O98.111 Syphilis complicating pregnancy, first trimester (principal); Z3A.00 Weeks of gestation of pregnancy not specified
CPT/HCPCS: 96372

== ENCOUNTER 2022-05-08 09:30 | Inpatient (IN) | payer MEDICAID, SELFPAY ==
[2022-05-08] VITALS (15 sets, daily range): BP systolic 105–137; BP diastolic 52–77; PULSE 63–97; RESP 14–18; TEMP 35.6–37.2; O2SAT 97–100; BMI 44.7
[2022-05-08] MEDS: Lactated Ringers 1,000 ML 999 ML IV (10:08)
[2022-05-08] MEDS: Acetaminophen 500 MG Tablet 1000 MG PO ×2 (10:16→17:04)
[2022-05-08 10:20] LABS: Absolute Lymphocyte Count 1.43 X10^3/uL (0.83-4.51); Absolute Neutrophil Count 6.9 X10^3/uL (2.0-7.7); Basophil# 0.01 X10^3/uL; Basophil% 0.1 % (0-1); Eosinophil# 0.07 X10^3/uL; Eosinophils% 0.8 % (0-5); Hemoglobin 11.3 g/dL (12.0-15.0); Lymphocyte # 1.43 X10^3/ul (0.83-4.51); Lymphocyte % 16.1 % (19-41); Mean Corp Hgb Conc 32.3 g/dL (32-36); Mean Corpuscular Hgb 29.4 pg (27.0-32.0); Mean Corpuscular Volume 90.9 fL (81-99); Mean Platelet Vol. 10.9 fl (6.2-12.0); Monocyte# 0.44 X10^3/uL; NRBC Flagged by Analyzer 0 % (0-5); Neutrophil # 6.85 X10^3/uL (2.7-7.7); Neutrophil % 77.2 % (47-70); Platelet Count 193 K/mm3 (150-450); RBC Distribution Width CV 13.9 % (11.6-14.6); RBC Distribution Width SD 46.1 fl (35.1-43.9); Red Blood Count 3.85 M/mm3 (4.2-5.4); White Blood Count 8.9 K/mm3 (4.4-11.0)
[2022-05-08] MEDS: Lactated Ringers 1,000 ML 150 ML IV (11:09)
[2022-05-08 11:16] LABS: Amphetamine Urine VISTA NEGATIVE (<1000 ng/mL); Barbiturate Urine VISTA NEGATIVE (< 200 ng/mL); Benzodiazepine Urine VISTA NEGATIVE (< 200 ng/mL); Cocaine Urine VISTA NEGATIVE (< 300 ng/mL); Ecstacy Urine VISTA NEGATIVE (< 500 ng/mL); Methadone Urine VISTA NEGATIVE (< 300 ng/mL); PCP Urine VISTA NEGATIVE (< 25 ng/mL); THC Urine VISTA NEGATIVE (< 50 ng/mL); Vista UDS pH Range 7
[2022-05-08] MEDS: Sodium Citrate/Citric Acid 30 ML UDC PO (11:51)
[2022-05-08] MEDS: Cefazolin 2 GM in 0.9% Normal Saline 100 ML IV (11:58)
--- NOTE | 2022-05-08 12:01 | PCM.HP.OB ---
HPI - General General Date of Admission: 05/08/22 Date of Service: 05/08/22 HPI Narrative RAS PUGA, is a 26 F who presents for repeat with tubal sterilization. Maternal Data Information Final INES: 05/11/22 Gestational age: 39&4 PFSH PFS Medical History (Updated 05/08/22 @ 12:[address] Samy Dinh MD) Bipolar disorder Depression Exposure to trichomonas History of chlamydia infection History of gestational hypertension History of gonorrhea History of pulmonary embolus (PE) History of wound infection Obesity affecting depression Prothrombin gene mutation PTSD (post-traumatic stress disorder) Request for sterilization Subchorionic hematoma Syphilis affecting Home Medications vits,calcium no.78-iron fumarate-folic acid 29 mg-1 mg tablet (Prenatabs FA) 1 tab PO DAILY 12/16/18 [History Last Taken 05/07/22 14:00] enoxaparin 100 mg/mL subcutaneous syringe 100 mg SQ DAILY history of blood clot 05/08/22 [History Last Taken 05/02/22 22:00] Allergy/AdvReac Type Severity Reaction Status Date / Time adhesive tape Allergy Rash Verified 02/15/20 09:49 amoxicillin Allergy Rash Verified 12/16/18 09:43 Surgical History (Updated 05/08/22 @ 12:[address] Samy Dinh MD) History of surgery Previous delivery affecting Previous section Social History Smoking Status: Never smoker History Elective abortions Hx Para 2 Spontaneous abortions Hx # Term Pregnancies Ectopic pregnancies Hx # Pregnancies Multiple births # of living children Vital Signs Vital Signs Vital Signs: 05/08/22 10:38 05/08/22 10:40 05/08/22 10:40 Temperature 97.2 F L Temperature Source Temporal Temporal Pulse Rate 96 Respiratory Rate 18 Blood Pressure 126/63 H 126/63 H Blood Pressure Mean 84 BP Systolic 126 BP Diastolic 63 Blood Pressure Source Monitor Blood Pressure Position Semi-Fowlers Blood Pressure Location Right Arm Pulse Ox 99 Oxygen Delivery Method Room Air 05/08/22 10:40 05/08/22 10:40 05/08/22 10:40 Temperature 97.2 F L Temperature Source Pulse Rate 96 Respiratory Rate Blood Pressure Blood Pressure Mean BP Systolic BP Diastolic Blood Pressure Source Blood Pressure Position Blood Pressure Location Pulse Ox 99 Oxygen Delivery Method Weight Weight: 260 lb 9.382 oz Body Mass Index (BMI) 44.7 Physical Exam Const alert and oriented x3 General Appearance: cooperative Chest inspection of chest normal Resp normal respiratory effort GI soft to palpation, non-tender and non-distended Inspection: gravid external exam normal Extremity no calf tenderness Labs Labs Labs: Blood Type A POSITIVE Antibody Screen NEGATIVE Hct 35.0 % (37-47) L Hgb 11.3 g/dL (12.0-15.0) L Rhogam given: No See [facility] H&P Assessment & Plan (1) History of pulmonary embolism: PLAN: Lovenox held more than 24 hours prior to planned . Will restart PP (2) Obesity affecting : (3) Syphilis affecting : PLAN: Patient treated with pcn G this and last 2 titers have been 1:2. Patient positive trich this and KAVITA and 3rd trimester screening was negative. (4) Request for sterilization: PLAN: Patient counseled on R/B/A including risks of regret & failure and she wishes to proceed with bilateral salpingectomy. (5) Previous delivery affecting : PLAN: Patient counseled on R/B/A and wishes to proceed with repeat . Informed consent signed.
--- NOTE | 2022-05-08 12:24 | FALS_PTH ---
PATIENT: RAS PUGA LOC: [facility] U#:[id number] AGE/SX: 26/F ROOM: [facility]005 RE05/08/[address]: Dr. Samy Dinh MD : 1995 BED: 1 DIS: 05/11/2022 SPEC #: [id number] RECD: 05/08/22 16:32 STATUS: DANIELA ROTHMAN #: [id number] SONNY: 05/08/22 12:[address]: Samy Dinh DEPT: SURGICAL PATHOLOGY RECD BY: Jolene Bonilla ENTERED: 05/11/22 07:57 SP TYPE: FALL TUBES OTHR DR: Dr. Td Anderson MD Tissues: Fallopian tube Procedures: Surgery Specimen Level II HEADER OPERATION: Tubal ligation PRE-OP DIAGNOSIS: Sterilization TISSUE SUBMITTED: Fallopian tubes, suture in left tube MICROSCOPIC DIAGNOSIS Right fallopian tube, segmental resection: Complete cross-sections of fallopian tube with no pathologic change. Left fallopian tube, segmental resection: Complete cross-sections of fallopian tube with no pathologic change. AM:ludmila 05/12/2022 MICROSCOPIC DESCRIPTION Slides are reviewed. GROSS DESCRIPTION Received in fixative is one container labeled with the patient's name and designated bilateral fallopian tubes, suture in left tube. The specimen consists of two fallopian tubes with an average length of 6 cm and has an average diameter of 0.7 cm. Both fallopian tubes have normal fimbriated ends. No mass lesions are identified. Paint Mixer Machine sections are submitted in two cassettes as follows: 1 - right fallopian tube, 2 - left fallopian tube. / AM:ludmila 05/11/2022 TC:5 CPT: 62264 x2
--- NOTE | 2022-05-08 13:17 | OP.PCM_ITS ---
Maternal Data Information Final INES: 05/11/22 Gestational age: 39&4 Details Operative Information Date of Procedure: 05/08/22 Pre-Operative Diagnosis: (1) Prior section (2) Sterilization request Post-Operative Diagnosis: Same Indications for : Repeat Elective and Desires elective sterilization Indications Narrative: The patient was taken to the operating room where spinal anesthesia was placed & found to be adequate. She was prepped and draped in the dorsal supine position with a leftward tilt. A Pfannenstiel skin incision was made approximately 2 cm above the symphysis pubis and carried through to the underlying fascia with the scalpel. The fascia was incised incised in the midline and extended laterally with the Negron scissors. The rectus muscles were in the midline and the peritoneum was entered carefully and bluntly. The peritoneal incision was stretched and the bladder blade was inserted. Vesicouterine peritoneum was tented up, incised & then bladder flap created gently. The uterine incision was made in a low transverse fashion with the scalpel and extended superiorly and inferiorly with blunt dissection. The infant's head was brought to the incision in the flexed position and delivered without difficulty. The head was gently guided to allow delivery of the anterior and posterior shoulders. The body then delivered with fundal pressure in the standard fashion. The 3VC cord was clamped and cut in delayed fashion. The infant was handed off to the waiting certified pediatric nurse practitioner. The placenta was delivered with fundal massage and gentle traction in the standard fashion. The uterus was exteriorized and cleared of clots and debris. The uterine incision was closed with #1 Vicryl suture in a running locked fashion. The incision was examined and was found to be hemostatic. The right fallopian tube was grasped, cauterized and ligated in serial fashion until complete excision. The left fallopian tube was then grasped, cauterized and ligated in serial fashion until complete excision. Excellent hemostasis of the salpingectomy sites was confirmed both before & after the uterus was returned to the abdominal cavity. The uterus was returned to the abdominal cavity. After irrigating Christina was placed over the uterine incision as some areas were denuded (but hemostatic). The peritoneum was closed with vicryl suture in running fashion The rectus muscle was examined and any bleeding was Bovie cauterized. The fascia was closed with PDS suture in a running standard fashion. The subcutaneous tissue was examining and any bleeding was Bovie cauterized. The subcutaneous tissue was reapproximated with interrupted sutures. The skin was closed in a subcuticular fashion by the JOURNEYMAN WIREMAN while I was present in the labor & delivery unit. The remainder of the procedure was performed by me with assistance. All sponge, lap, and needle counts were correct. The patient was taken to her room for recovery in a stable condition. Classification: Scheduled Procedure Type: bilateral salpingectomy forestry technical officer #1: Sana Narvaez Type of Anesthesia: Spinal Antibiotic Given: Ancef 2 grams IV x1 Estimated Blood Loss: 800ml Fluids Replaced: 2L Procedure Start Time: 12:19 Procedure Stop Time: 13:15 Findings Description of Procedure: Normal maternal uterus and adnexa Presentation: Positive for Vertex Amniotic Membrane Rupture Type: Artificial Amniotic Fluid Description: Clear Placental Delivery Description: Expressed Placenta Disposition: [facility] Specimen(s) Sent to Pathology: Bilateral fallopian tubes Cord Vessel Description: 3 Vessels Cord Entanglement: None Infant A Gender: Female (weight = 3740g, Shirley) (1 minute): 8 (5 minute): 9 Delayed Cord Clamping: Yes Complications Complications: None
[2022-05-08] MEDS: Oxytocin 30 units/NS 500 ml 30 UNITS/500 ML IV.SOLN 167 UNITS IV (13:35)
[2022-05-08] MEDS: Ketorolac 30 MG/ML Syringe IV ×2 (14:08→20:33)
[2022-05-08] MEDS: HYDROmorphone 1 MG/ML Syringe IV (14:09)
[2022-05-08 16:26] LABS: Pathology Specimen OB SEE PATHOLOGY REPORT
[2022-05-08] MEDS: Lactated Ringers 1,000 ML 100 ML IV (16:35)
[2022-05-08] MEDS: oxyCODONE 5 MG Tablet PO ×2 (17:05→21:41)
[2022-05-08] MEDS: Ondansetron 4 MG/2 ML Vial IV (22:38)
[2022-05-09 00:29] VITALS: BP 118/75; PULSE 121; RESP 18; TEMP 36.8; O2SAT 98
[2022-05-09] MEDS: Acetaminophen 500 MG Tablet 1000 MG PO ×4 (01:05→18:17)
[2022-05-09] MEDS: Enoxaparin 40 MG/0.4 ML Syringe SC ×2 (01:06→12:18)
[2022-05-09] MEDS: proCHLORPERazine 10 MG/2 ML Vial IV (01:09)
[2022-05-09] MEDS: oxyCODONE 5 MG Tablet PO ×4 (01:57→18:46)
[2022-05-09] MEDS: 0.9% Saline Lock 10 ML Syringe IV (01:57)
[2022-05-09] MEDS: Ketorolac 30 MG/ML Syringe IV ×2 (01:57→08:25)
[2022-05-09 04:05] VITALS: BP 97/48; PULSE 104; RESP 18; TEMP 36.4; O2SAT 97
--- NOTE | 2022-05-09 04:17 | NURSING ---
Pt with increased pain around 2100 05/08/22. Pt reported pain in her abdomen, at surgical incision, in her back, and a headache, and rated her pain a 9/10. Scheduled pain meds given along with PRN Oxy. Once pt's pain was beginning to improve, this RN and recharger assisted pt to get out of bed and into chair (around 0130). Pt reported significant pain while moving, but once she got to the chair reported feeling more comfortable. With 0400 VS check pt reported feeling much less pain. Castaneda catheter removed. VS and fundal check done. Fundus firm, midline, pt with small amount of bleeding. Pt aware of reasons to call RN/symptoms to report. LaRN
[2022-05-09 05:22] LABS: Mean Corp Hgb Conc 33.3 g/dL (32-36); Mean Corpuscular Hgb 30.4 pg (27.0-32.0); Mean Corpuscular Volume 91.2 fL (81-99); Mean Platelet Vol. 10.3 fl (6.2-12.0); Platelet Count 156 K/mm3 (150-450); RBC Distribution Width CV 13.9 % (11.6-14.6); RBC Distribution Width SD 46.2 fl (35.1-43.9); Red Blood Count 3.29 M/mm3 (4.2-5.4); White Blood Count 9.7 K/mm3 (4.4-11.0)
[2022-05-09] MEDS: Senna/Docusate Sodium 1 Tablet PO (08:26)
[2022-05-09 08:39] VITALS: BP 120/69; PULSE 122; RESP 18; TEMP 37.4; O2SAT 97
--- NOTE | 2022-05-09 09:13 | PCM.PN.OB ---
Subjective Subjective Patient seen at bedside. Sitting in chair at bedside. Denies any headache, vision changes, SOB, or CP. Ambulating and voiding without difficulty. Bottle feeding Objective Data Objective Data Vital Signs: Vital Signs Temp Pulse Resp BP Pulse Ox O2 Del Method 99.3 F H 122 H 18 120/69 97 Room Air 05/09/22 08:39 05/09/22 08:39 05/09/22 08:39 05/09/22 08:39 05/09/22 08:39 05/09/22 08:39 Oxygen Delivery Method Room Air Weight: 260 lb 9.382 oz Body Mass Index (BMI) 44.7 Intake & Output: Intake and Output for Last 24 Hours 05/07/22 05/08/22 05/09/22 23:59 23:59 23:59 Intake Total 1832.5 / 1832.5 901.67 / 901.67 Output Total 600 / 600 1950 / 1950 Balance 1232.5 / 1232.5 -1048.33 / -1048.33 Lab / Micro Data Result Diagrams: 05/09/22 05:15 Labs: Laboratory Results - last 24 hr 05/08/22 10:00: WBC 8.9, RBC 3.85 L, Hgb 11.3 L, Hct 35.0 L, MCV 90.9, MCH 29.4, MCHC 32.3, RDW Std Deviation 46.1 H, RDW Coeff of Chely 13.9, Plt Count 193, MPV 10.9, Immature Gran % (Auto) 0.800, Neut % (Auto) 77.2 H, Lymph % (Auto) 16.1 L, [place] % (Auto) 5.0, Eos % (Auto) 0.8, Baso % (Auto) 0.1, Absolute Neuts (auto) 6.9, Absolute Lymphs (auto) 1.43, Nucleated RBC % 0 05/08/22 10:00: Blood Type A POSITIVE, Antibody Screen NEGATIVE 05/08/22 11:00: Urine Opiates Screen NEGATIVE, Urine Methadone Screen NEGATIVE, Ur Barbiturates Screen NEGATIVE, Ur Phencyclidine Scrn NEGATIVE, Ur Amphetamines Screen NEGATIVE, MDMA (Ecstasy) Screen NEGATIVE, U Benzodiazepines Scrn NEGATIVE, Urine Cocaine Screen NEGATIVE, U Cannabinoids Screen NEGATIVE, Ur Drug Screen Comment 07/16/22 05:15: WBC 9.7, RBC 3.29 L, Hgb 10.0 L, Hct 30.0 L, MCV 91.2, MCH 30.4, MCHC 33.3, RDW Std Deviation 46.2 H, RDW Coeff of [place] 13.9, Plt Count 156, MPV 10.3 Micro: Microbiology 05/08/22 10:00 Nasal Secretion SARS-CoV-2 Antigen (Rapid) - Final ROS Eyes Eyes: Denies blurry vision, change in vision or spots in vision ENT HEENT: Denies dizziness or headache(s) Cardiovascular Cardiovascular: Denies abdominal pain, chest pain or dyspnea Respiratory/Chest Respiratory/Chest: Denies cough, dyspnea, shortness of breath at rest or shortness of breath with exertion Gastrointestinal Gastrointestinal: Denies abdominal pain, diarrhea or vomiting Genitourinary Genitourinary: Denies change in urinary stream, difficulty urinating or dysuria Musculoskeletal Musculoskeletal: Reports none Integumentary Integumentary: Denies rash Neurologic Neurologic: Denies dizziness, headache(s), memory loss or weakness Physical Exam Narrative Dressing is dry and intact Const alert and no apparent distress General Appearance: cooperative and comfortable Exam Limitations: no limitations HEENT normocephalic Eyes General Eye: normal appearance of both eyes Neck full ROM General: normal visual inspection Chest Chest: symmetrical chest wall rise Resp normal respiratory effort and normal air movement Effort and Inspection: symmetric chest movement Auscultation: clear to auscultation bilaterally Cardio regular rate and regular rhythm GI normal to inspection, nondistended, normoactive bowel sounds Back/Spine normal ROM Extremity full ROM and no calf tenderness General Extremity: normal exam except as noted Skin no rashes or lesions noted Neuro CN's II-XII intact bilaterally Psych mental status grossly normal Assessment & Plan (1) Previous delivery affecting : (2) History of pulmonary embolism: (3) Obesity affecting : PLAN: Plan PO Day 1 Repeat C/S with BTL Pain control Increase ambulation Anticipate discharge home tomorrow
[2022-05-09 12:15] VITALS: BP 118/71; PULSE 120; RESP 18; TEMP 36.4; O2SAT 100
--- NOTE | 2022-05-09 14:45 | NURSING ---
Report received from Vivian MORALES, taking over pt care.
[2022-05-09] MEDS: Ibuprofen 600 MG Tablet PO ×2 (14:50→20:51)
[2022-05-09 16:59] VITALS: BP 112/66; PULSE 98; RESP 18; TEMP 36.4; O2SAT 97
--- NOTE | 2022-05-09 20:46 | CASEMGMT ---
Addendum entered by Tika Beach 05/09/22 21:37: SW did review MOB paper chart and there was no toxicology test done on MOB during OBGYN visits. Original Note: Social Work Assessment SW spoke with RN. MOB is appropriate and her Ovidio is supportive. RN states 's RPR tested positive for Syphilis but is asymptomatic. SW had spoken to a different RN earlier who stated pt was doing much better today and has been appropriate with care. Pt's Ovidio is also aware that he is not the FOB. MOB: Diana Murrell G/P: 4/ PNC: [facility] Control: Pt states she has no tubes. Per chart, pt had tubal sterilization Baby: Girl named Shirley : 05/08/2020 Apgars: 8/9 Weight: 3740 G Hose Turner: Ivet MOB reports to be bottle feeding. MOB states that she will try to breast feed too. FOB states they have breast pump at home and he will bring in pump tomorrow. MOB other children: MOB reports to have two other children. Roberto who is 3 and Esthela who is 2. MOB states they have her 's last name of Dougie. MOB reports that her last name is Dougie she has not got her name changed yet. Housing: MOB reports appropriate housing and states no concerns. Transportation: MOB reports to have access to transportation and states no concerns. Supplies: MOB reports to have all needed supplies for the including Diapers, wipes, clothing, Bassinet, Car Seat. Supports: MOB reports that her Ovidio is good support and his parents. MOB reports that for now they are living with Ovidio's parents. Education: MOB reports to have graduated high scool and had no learning difficulties. MOB states that she did not attend College or tech school. Employment: MOB reports to not be working. Agency Involvement: JFS: MOB reports to be on [employer] [place] WIC: MOB reports to be on WIC [facility]: MOB reports to have been in [facility] in the past for her other children and they are in [employer]. MOB agreeable to [facility] Referral being made for this . Counseling: MOB reports to have been in counseling before [facility]. Per chart, pt was seeing Betsy Hurst at [facility]. CPS Involvement: MOB reports to have had a CPS Case with her son Roberto. MOB reports that it was closed. MOB reports no CPS case with her daughter Esthela. MOB reports no current CPS involvement. MOB Mental Health Hx: MOB reports to have history of Bipolar and Depression. RN reported to this worker history of PTSD, PPD, Bipolar, Depression. MOB with STD history. MOB reports to not currently be on any medications for Mental Health. MOB reports that she feels her Mental Health is well managed. MOB reports no current suicidal/homicidal thoughts. PHQ-2 score: 0 MOB AOD History: MOB reports to this worker that she used Marijuana Gummies in first trimester of . MOB reports no use after the first trimester. Per chart, pt did smoke cigarettes before . MOB denied any additional substance abuse. MOB and Toxicology results both show negative for substances. SW reviewed paper chart. It was noted that on 09-25-2021, pt reported to of used THC 3 weeks ago and none since then. FOB: MOB did not disclose FOB information. It is being reported that pt's , Ovidio Constantino, is not the FOB and he is aware of this. Per RN, Ovidio has been supportive and willing to help with . Time Together: 5 years Involved at : Yes, Ovidio confirms he is involved. Employment: Ovidio states that he currently works at [employer] but states they are only giving him cutting department supervisor hours and he needs a radio time salesperson job. Ovidio states that he is looking for other jobs. MOB reports that Ovidio has an interview Wednesday. Ovidio reports to be taking as much time off as MOB needs. Ovidio reports that his parents are watching the other children. FOB Mental Health History/AOD/Domestic Violence: Ovidio reports no Mental Health history and no AOD history. Ovidio and MOB report no Domestic Violence concerns. DARLIN educated MOB and Ovidio on Shaken Baby, Post Depression, and Safe Sleeping. Resource packet provided. MOB appropriate during conversation. MOB with appropriate eye contact and affect. MOB holding baby during conversation. Ovidio also appropriate during conversation and willing to answer questions. DARLIN discussed case with Honorio FELICIANO. SW to watch for meconium for baby and then if positive, CPS will be contacted. SW reviewed demographics and MOB has different address listed than her . SW in to speak with MOB. MOB reports the address she will be going to at discharge is [facility] [id number]. SW spoke with pt regarding FOB and pt gave permission for this worker to speak to her in front of Ovidio. MOB reports FOB is [facility]. MOB states not that she knows regarding FOB Mental Health or AOD history. MOB reports that this just happened and Ovidio is aware of who the FOB is. MOB reports that FOB will be involved and states at this time she has no Domestic Violence concerns regarding Amando. [facility] referral made. Plan: Home. [facility] referral made. SW to watch for Meconium. Tika Beach CLOUD DEVELOPER, PAMPHLET DISTRIBUTOR
[2022-05-09 21:00] VITALS: BP 132/74; PULSE 98; RESP 18; TEMP 36.2; O2SAT 100
[2022-05-10] MEDS: Enoxaparin 40 MG/0.4 ML Syringe SC ×3 (00:35→21:57)
[2022-05-10] MEDS: oxyCODONE 5 MG Tablet PO ×3 (00:35→19:47)
[2022-05-10] MEDS: Acetaminophen 500 MG Tablet 1000 MG PO ×4 (00:35→18:21)
[2022-05-10 01:30] VITALS: BP 124/71; PULSE 89; RESP 18; TEMP 36.5; O2SAT 97
[2022-05-10] MEDS: Ibuprofen 600 MG Tablet PO ×4 (03:22→21:58)
[2022-05-10] MEDS: Senna/Docusate Sodium 1 Tablet PO (09:39)
[2022-05-10 09:40] VITALS: BP 130/78; PULSE 96; RESP 18; TEMP 37; O2SAT 97
--- NOTE | 2022-05-10 10:01 | PCM.PN.OB ---
Subjective Subjective Patient seen at bedside. Sitting in chair at bedside. Has been ambulating in room. Pain is controlled with medications. Denies any headache, vision changes, SOB, or CP. Possible discharge home later today. Objective Data Objective Data Vital Signs: Vital Signs Temp Pulse Resp BP Pulse Ox O2 Del Method 98.6 F 96 18 130/78 H 97 Room Air 05/10/22 09:40 05/10/22 09:40 05/10/22 09:40 05/10/22 09:40 05/10/22 09:40 05/10/22 09:40 Oxygen Delivery Method Room Air Weight: 260 lb 9.382 oz Body Mass Index (BMI) 44.7 Intake & Output: Intake and Output for Last 24 Hours 05/08/22 05/09/22 05/10/22 23:59 23:59 23:59 Intake Total 1832.5 / 1832.5 901.67 / 901.67 Output Total 600 / 600 2850 / 2850 Balance 1232.5 / 1232.5 -1948.33 / -1948.33 Lab / Micro Data Result Diagrams: 05/09/22 05:15 Micro: Microbiology 05/08/22 10:00 Nasal Secretion SARS-CoV-2 Antigen (Rapid) - Final ROS Eyes Eyes: Denies blurry vision, change in vision or spots in vision ENT HEENT: Denies dizziness or headache(s) Cardiovascular Cardiovascular: Denies abdominal pain, chest pain or dyspnea Respiratory/Chest Respiratory/Chest: Denies cough, dyspnea, shortness of breath at rest or shortness of breath with exertion Gastrointestinal Gastrointestinal: Denies abdominal pain, diarrhea or vomiting Genitourinary Genitourinary: Denies change in urinary stream, difficulty urinating or dysuria Musculoskeletal Musculoskeletal: Reports none Integumentary Integumentary: Denies rash Neurologic Neurologic: Denies dizziness, headache(s), memory loss or weakness Physical Exam Narrative Dressing is dry and intact Const alert and no apparent distress General Appearance: cooperative and comfortable Exam Limitations: no limitations HEENT normocephalic Eyes General Eye: normal appearance of both eyes Neck full ROM General: normal visual inspection Chest Chest: symmetrical chest wall rise Resp normal respiratory effort and normal air movement Effort and Inspection: symmetric chest movement Auscultation: clear to auscultation bilaterally Cardio regular rate and regular rhythm GI normal to inspection, nondistended, normoactive bowel sounds Back/Spine normal ROM Extremity full ROM and no calf tenderness General Extremity: normal exam except as noted Skin no rashes or lesions noted Neuro CN's II-XII intact bilaterally Psych mental status grossly normal Assessment & Plan (1) Previous delivery affecting : (2) History of pulmonary embolism: (3) Obesity affecting : PLAN: POD 2 Repeat C/S with BTL Pain control Routine care Increase ambulation D/C home with follow up in office in 2 weeks Continue Lovenox 40 mg SQ BID
--- NOTE | 2022-05-10 10:07 | PCM.DC.SUM ---
Providers Date of Admission: 05/08/22 Primary Care Physician: Dr. Td Anderson MD Reason For Visit: REPEAT Diagnosis Discharge Diagnosis (1) Previous delivery affecting : Status: Acute Code(s): O34.219 - Maternal care for unspecified type scar from previous delivery (2) History of pulmonary embolism: Status: Acute Code(s): Z86.711 - Personal history of pulmonary embolism (3) Obesity affecting : Status: Acute Code(s): O99.210 - Obesity complicating , unspecified trimester Plan: POD 2 Repeat C/S with BTL Pain control Routine care Increase ambulation D/C home with follow up in office in 2 weeks Continue Lovenox 40 mg SQ BID Medications at Discharge Home Medications vits,calcium no.78-iron fumarate-folic acid 29 mg-1 mg tablet (Prenatabs FA) 1 tab PO DAILY 12/16/18 enoxaparin 40 mg/0.4 mL subcutaneous syringe 40 mg (0.4 mL) subcut BID #8 mL 05/10/22 oxycodone 5 mg tablet 5 - 10 mg PO Q4H PRN PRN Pain Score 4-10 5 days #20 tabs 05/10/22 sennosides 8.6 mg-docusate sodium 50 mg tablet (Stool Softener-Stimulant Laxative) 1 - 2 tab PO DAILY 30 days #60 tabs 05/10/22 Weight / BMI Weight Weight: 260 lb 9.382 oz Body Mass Index (BMI) 44.7 ABG / Lab / Microbiology Data Result Diagrams: 05/09/22 05:15 Microbiology: Microbiology 05/08/22 10:00 Nasal Secretion SARS-CoV-2 Antigen (Rapid) - Final D/C Instructions Discharge Diet: No restrictions Discharge Activity: May Not Drive (2 weeks) and May Shower May resume sexual activity in: 6-8 weeks Weight Bearing Status: Weight bearing as tolerated Call your doctor if your incision/area has: Continuous Slow Oozing, Increased Redness, Foul Smelling Discharge and Swelling at the incision site Call your doctor if you observe: Fever of 101 or Higher, Inability to urinate, Shortness of breath, Chest pain, Calf discomfort and Uncontrolled pain Remove Dressing in: leave until fall off Cleanse incision/area with: Keep Dressing Clean & Dry Please Follow Up With: Samy Dinh MD When: 2 weeks in office Meaningful Use Info Meaningful Use Diagnoses (Choose all that apply): VTE VTE Anticoag overlap given w/in hospital stay or rx'd at dc?: Yes Pt receive overlap for 5 days?: Yes Discharge Plan Admission Admit Date/Time: 05/08/22 09:30 Primary Reason for Your Visit: Repeat Section Attending Provider: Samy Dinh Primary Care Provider: Td Anderson Discharge Orders/Prescriptions Prescriptions: New enoxaparin 40 mg/0.4 mL Syringe 40 mg subcut BID Qty: 8 0RF sennosides-docusate sodium [Stool Softener-Stimulant Laxat] 8.6-50 mg Tablet 1 - 2 tab PO DAILY 30 Days Qty: 60 0RF oxycodone 5 mg Tablet 5 - 10 mg PO Q4H PRN PRN (Reason: Pain Score 4-10) 5 Days Qty: 20 0RF Continued Prenatabs FA 1 TABLET tablet 1 tab PO DAILY Discontinued enoxaparin 100 MG/ML syringe 100 mg SQ DAILY Referrals / Follow Up: Td Anderson MD [Primary Care Provider] - Disposition Disposition (needs filled in before D/C Order can be placed): Home, Self Care
[2022-05-10] MEDS: Bisacodyl 10 MG Suppository RC (13:19)
[2022-05-10 13:50] VITALS: BP 125/70; PULSE 98; RESP 18; TEMP 36.4; O2SAT 98
--- NOTE | 2022-05-10 14:37 | NURSING ---
prior to entering room pt was heard arguing with spouse. upon entering room pt was tearful. verbalized frustration over inability to have a bowel movement. Dulcolax suppository administered. Pt appeared more relaxed after administration of suppository. Pt reports feeling overwhelmed. Discussed depression, mental status, and coping strategies. Pt then verbalized anxiety over paternity. Plan is to have health social work professor see pt in the morning before discharge for concerns.
[2022-05-10 19:50] VITALS: BP 133/87; PULSE 83; RESP 16; TEMP 36.3; O2SAT 99
[2022-05-11] MEDS: Acetaminophen 500 MG Tablet 1000 MG PO ×3 (00:21→13:09)
[2022-05-11 01:23] VITALS: BP 121/74; PULSE 85; RESP 16; TEMP 36.1; O2SAT 96
[2022-05-11] MEDS: Ibuprofen 600 MG Tablet PO ×2 (04:01→09:58)
--- NOTE | 2022-05-11 08:44 | PN.OBGYN_ITS ---
Objective Data Objective Data Doing well per patient and nursing staff. Ambulating and taking PO without difficulty. Voiding and passing flatus. Pain controlled. Bottle feeding. Denies headache, visual changes, chest pain, shortness of breath, leg pain or increased bleeding. Lochia normal. Vital Signs: Vital Signs Temp Pulse Resp BP Pulse Ox O2 Del Method 97 F L 85 16 121/74 H 96 Room Air 05/11/22 01:23 05/11/22 01:23 05/11/22 01:23 05/11/22 01:23 05/11/22 01:23 05/11/22 01:23 Oxygen Delivery Method Room Air Weight: 260 lb 9.382 oz Body Mass Index (BMI) 44.7 Intake & Output: Intake and Output for Last 24 Hours 05/09/22 05/10/22 05/11/22 23:59 23:59 23:59 Intake Total 901.67 / 901.67 Output Total 2850 / 2850 Balance -1948.33 / -1948.33 Lab / Micro Data Result Diagrams: 05/09/22 05:15 Micro: Microbiology 05/08/22 10:00 Nasal Secretion SARS-CoV-2 Antigen (Rapid) - Final ROS Constitutional Constitutional: Reports systems reviewed and no addt'l complaints, except as documented; Denies headache(s) Eyes Eyes: Denies acute decrease in peripheral vision, blurry vision or change in vision ENT HEENT: Reports systems reviewed and no addt'l complaints, except as documented Cardiovascular Cardiovascular: Denies chest pain or dizziness Respiratory/Chest Respiratory/Chest: Denies cough, dyspnea, dyspnea on exertion, shortness of breath at rest or shortness of breath with exertion Gastrointestinal Gastrointestinal: Denies abdominal pain, diarrhea, nausea or vomiting Genitourinary Genitourinary: Denies abdominal discomfort Musculoskeletal Musculoskeletal: Denies limited range of motion Integumentary Integumentary: Reports systems reviewed and no addt'l complaints, except as documented Neurologic Neurologic: Reports systems reviewed and no addt'l complaints, except as documen francisco Psychiatric Psychiatric: Reports systems reviewed and no addt'l complaints, except as documented Endocrine Endocrinology: Reports systems reviewed and no addt'l complaints, except as documented Hematologic/Lymphatic Hematologic/Lymphatic: Reports systems reviewed and no addt'l complaints, except as documented Allergic/Immunologic Allergic/Immunologic: Reports systems reviewed and no addt'l complaints, except as documented Physical Exam Const alert and oriented x3 General Appearance: cooperative Orientation / Consciousness: awake, oriented to person, oriented to place and oriented to time Exam Limitations: no limitations HEENT normocephalic Head and Scalp: normal to inspection, normocephalic and atraumatic Face and Sinus: normal facial exam Eyes General Eye: normal appearance of both eyes Neck full ROM Chest Chest: symmetrical chest wall rise Resp normal respiratory effort and normal air movement Auscultation: clear to auscultation bilaterally Cardio regular rate, regular rhythm, S1 normal heart sound, S2 normal heart sound, no murmurs, no rub, no gallops and no clicks GI normal to inspection, nondistended, normoactive bowel sounds and non-tender GI Narrative: dressing dry and intact. Fundus firm 3 below U Bladder / Kidney Exam: no CVA tenderness Back/Spine normal ROM Extremity normal to inspection and full ROM Skin no rashes or lesions noted Neuro oriented x3, CN's II-XII intact bilaterally and moves all extremities Sensorium / Orientation: awake, alert and oriented to person Motor Exam: clonus absent Deep Tendon Reflexes: Rt Patellar (L4): 2+ and Lt Patellar (L4): 2+ Assessment & Plan (1) Post-operative pain: (2) Previous delivery affecting : (3) Request for sterilization: (4) Syphilis affecting : (5) Prothrombin gene mutation: (6) Open wound, abdominal wall, lateral: (7) Bipolar 2 disorder: (8) History of pulmonary embolism: (9) Gestational hypertension: PLAN: Plan POD 3 Repeat C/S with BTL Pain control Routine care Increase ambulation D/C home with follow up in office in 2 weeks Continue Lovenox 40 mg SQ BID
[2022-05-11 09:10] VITALS: BP 130/80; PULSE 93; RESP 16; TEMP 36.3
[2022-05-11] MEDS: Enoxaparin 40 MG/0.4 ML Syringe SC (09:58)
[2022-05-11] MEDS: Senna/Docusate Sodium 1 Tablet PO (09:59)
--- NOTE | 2022-05-27 08:45 | CASEMGMT ---
Social Work Note Meconium results reviewed for pt's baby Shirley Murrell. Meconium is pending. SW placed a call to [facility] CPS and updated Waldo that Meconium is pending. SW to continue to watch for Meconium. Tika Beach FILING CLERK, STUDIO CONTROL OPERATOR
--- NOTE | 2022-06-17 11:53 | CASEMGMT ---
Social Work Note DARLIN reviewed chart. Pt's meconium came back negative. DARLIN placed a call to [facility] CPS and updated Jose on pt's meconium results which are negative. Tika Beach FARM MACHINERY MECHANIC, DEPUTY DIRECTOR
== END 2022-05-11 13:50 | disposition home or self-care (01) | DRG 539 ==
PROVIDERS: Admitting Provider Obstetrics & Gynecology; PCP Family Medicine; Visit Provider Obstetrics & Gynecology
PROC: 10D00Z1 Extraction of Products of Conception, Low, Open Approach (ICD-10-PCS; CPT 59514; principal; 2022-05-08 11:45)
DX: O34.211 Maternal care for low transverse scar from previous cesarean delivery (principal); D68.52 Prothrombin gene mutation; O99.12 Other diseases of the blood and blood-forming organs and certain disorders involving the immune mechanism complicating childbirth; O98.12 Syphilis complicating childbirth; O10.92 Unspecified pre-existing hypertension complicating childbirth; F31.81 Bipolar II disorder; S31.109A Unspecified open wound of abdominal wall, unspecified quadrant without penetration into peritoneal cavity, initial encounter; O99.344 Other mental disorders complicating childbirth; Z79.01 Long term (current) use of anticoagulants; Z37.0 Single live birth; Z30.2 Encounter for sterilization; O9A.22 Injury, poisoning and certain other consequences of external causes complicating childbirth; Z86.711 Personal history of pulmonary embolism; O26.23 Pregnancy care for patient with recurrent pregnancy loss, third trimester; A53.9 Syphilis, unspecified; Z3A.39 39 weeks gestation of pregnancy
CPT/HCPCS: 59050; 80307; 85025; 85027; 86850; 86900; 86901; 87426; 88302; 99218; J7120; A4216; G0378; J2405